=== PATIENT | female | born 1975 | race African-American/Black ===

== ENCOUNTER 2018-03-17 06:59 | Emergency (ER) | payer OTHER ==
--- OUTSIDE RECORDS SUMMARY | 2018-03-17 07:01 | XMS REPORT | Clinical Summary ---
:1975 Author Organization [facility] Address [address] [place] [address] Care Team Providers Name Role Phone Asked, No Pcp Primary Care Provider Unavailable Allergies Active Allergy Reactions Severity Noted Date Comments Aspirin Hives 05/01/2017 Liraglutide 05/03/2017 Pancreatitis Current Medications Prescription Sig. Disp. Refills Start Date End Date Status insulin asp Inject 22 Active prt-insulin ASPART Units under (NovoLOG 70/30) 100 the skin 2 unit/mL (70-30) (two) times a injection day before meals. esomeprazole Take 20 mg by Active (NexIUM) 20 MG mouth daily capsule before breakfast. lisinopril-hydrochl Take 1 tablet Active orothiazide by mouth (MARY PEGUEROTI daily. C) 10-12.5 mg per tablet liraglutide Inject 1.2 mg 05/03/2017 Discontinued (VICTOZA) 0.6 under the skin mg/0.1 mL (18 mg/3 daily. mL) pen injector HYDROcodone-acetami Take 1 tablet 05/03/2017 Discontinued nophen (NORCO) by mouth every 7.5-325 mg per 6 (six) hours tablet as needed for mild pain or moderate pain. HYDROcodone-acetami Take 1 tablet 20 tablet 0 05/03/2017 05/08/2017 nophen (NORCO) by mouth every 5-325 mg per tablet 6 (six) hours as needed for moderate pain for up to 5 days. Max Daily Amount: 4 tablets ondansetron Take 1 tablet 15 tablet 0 05/03/2017 06/02/2017 (ZOFRAN, (8 mg total) HYDROCHLORIDE,) 8 by mouth every MG tablet 8 (eight) hours as needed for nausea or vomiting for up to 30 days. Active Problems Problem Noted Date Abdominal pain 05/02/2017 Pancreatitis 05/02/2017 Type 2 diabetes mellitus with complication 05/02/2017 Hepatitis 05/01/2017 Encounters Date Type Specialty Care Team Description 05/01/2017 - Emergency General Internal Tu, ShreyasJose Manuel Rogers, Hepatitis ( Primary Dx); 05/03/2017 Medicine Epigastric pain; Suman Andrews Drug-induced acute pancreatitis without infection or necrosis MD Amelie after 03/16/2017 Social History Tobacco Use Types Packs/Day Years Used Date Former Smoker Cigarettes 0.5 Tobacco Cessation: Counseling Given: No Alcohol Use Drinks/Week oz/Week Comments Yes social Sex Assigned at Date Recorded Not on file Last Filed Vital Signs Vital Sign Reading Time Taken Blood Pressure 120/72 05/03/2017 7:37 AM CDT Pulse 64 05/03/2017 7:37 AM CDT Temperature 36.2 C (97.2 F) 05/03/2017 7:37 AM CDT Respiratory Rate 18 05/03/2017 7:37 AM CDT Oxygen Saturation 98% 05/03/2017 7:37 AM CDT Inhaled Oxygen Concentration - - Weight - - Height 172.7 cm (5' 8") 05/01/2017 12:57 PM CDT Body Mass Index - - Plan of Treatment Health Maintenance Due Date Last Done Comments DIABETIC FOOT EXAM 1984 DIABETIC RETINAL EYE EXAM 1984 URINE MICROALBUMIN 1984 CERVICAL CANCER SCREENING 1995 INFLUENZA VACCINE 05/28/2018 Results POC glucose (05/03/2017 7:36 AM)Only the most recent of10 resultswithin the time period is included. Component Value Ref Range POC glucose 178 (H) 65 - 99 mg/dL Comment: [facility] Notified RN Meter ID: [id number] Chili Pepper Grinder: Maria Fernanda Santiago Specimen Performing Laboratory [facility] DEPARTMENT OF PATHOLOGY AND GENOMIC MEDICINE [address] [place] [address] CBC with platelet and differential (05/03/2017 6:00 AM)Only the most recent of4 resultswithin the time period is included. Component Value Ref Range WBC 8.22 4.50 - 11.00 k/uL RBC 4.05 (L) 4.20 - 5.50 m/uL HGB 11.1 (L) 12.0 - 16.0 g/dL HCT 35.1 (L) 37.0 - 47.0 % MCV 86.7 82.0 - 100.0 fL MCH 27.4 27.0 - 34.0 pg MCHC 31.6 31.0 - 37.0 g/dL RDW - SD 48.0 37.0 - 55.0 fL MPV 9.2 8.8 - 13.2 fL Platelet count 347 150 - 400 k/uL Nucleated RBC 0.00 /100 WBC Neutrophils 47.9 39.0 - 69.0 % Lymphocytes 38.2 25.0 - 45.0 % Monocytes 8.5 0.0 - 10.0 % Eosinophils 4.5 0.0 - 5.0 % Basophils 0.5 0.0 - 1.0 % Immature granulocytes 0.4Comment: "Immature granulocytes" 0.0 - 1.0 % (promyelocytes, myelocytes, metamyelocytes) Specimen Performing Laboratory Blood [facility] DEPARTMENT OF PATHOLOGY AND [facility] [address] [address] Estimated GFR (05/03/2017 4:00 AM)Only the most recent of4 resultswithin the time period is included. Component Value Ref Range GFR Non Af Amer 54 (A) mL/min/1.73 m2 GFR Af Amer 66 mL/min/1.73 m2 Comment: Chronic kidney disease: <60 mL/min/1.73m2 Kidney failure: <15 mL/min/1.73m2 The estimated GFR is calculated from the IDMS-traceable Modification of Diet in Renal Disease Equation. The accuracy of the calculation is poor when the creatinine is normal. Calculated values >90 mL/min/1.73m2 are not reported. This equation has not been validated in children (<18 years), women, the elderly (>70 years), or ethnic groups other than Caucasians and Americans. Specimen Performing Laboratory Plasma specimen [facility] DEPARTMENT OF PATHOLOGY AND [facility] MEDICINE [address] [place] [address] Comprehensive metabolic panel (05/03/2017 4:00 AM)Only the most recent of4 resultswithin the time period is included. Component Value Ref Range Sodium 141 135 - 148 mEq/L Potassium 3.3 (L) 3.5 - 5.0 mEq/L Chloride 101 98 - 112 mEq/L CO2 27 24 - 31 mEq/L Anion gap 13 7 - 15 mEq/L Comment: Starting from January , anion gap calculation no longer incorporates potassium. Please note the change. BUN 5 (L) 6 - 20 mg/dL Creatinine 1.1 (H) 0.5 - 0.9 mg/dL Glucose 150 (H) 65 - 99 mg/dL Calcium 8.9 8.3 - 10.2 mg/dL Protein 7.1 6.3 - 8.3 g/dL Comment: [place] 4.6-7.0 g/dL 1 week 4.4-7.6 g/dL 7 months-1year5.1-7.3 g/dL 1-2 years5.6-7.5 g/dL >3 years6.0-8.0 g/dL 18-150 6.3-8.3 g/dL Albumin 2.7 (L) 3.5 - 5.0 g/dL A/G ratio 0.6 (L) 0.7 - 3.8 Alkaline phosphatase 187 (H) 35 - 104 U/L AST 121 (H) 10 - 35 U/L ALT 192 (H) 5 - 50 U/L Total bilirubin 0.4 0.0 - 1.2 mg/dL Specimen Performing Laboratory Plasma specimen [facility] DEPARTMENT OF PATHOLOGY AND GENOMIC MEDICINE [address] [place] [address] Troponin (05/02/2017 11:08 AM)Only the most recent of2 resultswithin the time period is included. Component Value Ref Range Troponin <0.30 0.00 - 0.30 ng/mL Comment: 0.30 - 1.49 ng/mlMay indicate increased risk of acute coronary syndrome. >=1.5 ng/mlConsistent with acute myocardial infarction. The diagnostic value of a single normal or non-diagnostic result is questionable.Serial samples at 2-6 hour intervals are required to rule out acute myocardial injury. Specimen Performing Laboratory Plasma specimen [facility] DEPARTMENT OF PATHOLOGY AND GENOMIC MEDICINE [address] [place] [id number] Urinalysis screen and microscopy, with reflex to culture (05/02/2017 5:26 AM) Component Value Ref Range Specimen site Clean catch Color, UA Straw Appearance, UA Clear Specific gravity, UA 1.020 1.001 - 1.035 pH, UA 5.0 5.0 - 8.5 Protein, UA Negative Negative Glucose, UA 3+ (A) Negative Ketones, UA Negative Negative Bilirubin, UA Negative Negative Blood, UA Negative Negative Nitrite, UA Negative Negative Urobilinogen, UA <2.0 <2.0 Leukocyte esterase, UA Negative Negative Epithelial cells, UA 3 /HPF WBC, UA 1 0 - 4 /HPF RBC, UA 1 0 - 2 /HPF Bacteria, UA Few None seen Yeast, UA None seen Yeast with pseudohyphae, UA None seen Hyaline casts, UA 8 /LPF Specimen Performing Laboratory Urine [facility] DEPARTMENT OF PATHOLOGY AND GENOMIC MEDICINE [address] [place] [address] Urine culture (05/02/2017 5:26 AM) Component Value Ref Range Urine culture SEE COMMENTComment: Bacteriuria screen negative. Specimen Performing Laboratory [facility] OF PATHOLOGY AND GENOMIC MEDICINE [address] [place] [address] ECG 12 lead (05/02/2017 4:29 AM) Component Value Ref Range Ventricular rate 78 Atrial rate 78 RI interval 160 QRSD interval 84 QT interval 412 QTC interval 469 P axis 1 56 QRS axis 1 3 T wave axis 2 EKG impression Normal sinus rhythm-Normal ECG-No previous ECGs available- Specimen Performing Laboratory [facility] MUSE [address] [place] [address] Hepatitis acute panel (05/02/2017 3:56 AM) Component Value Ref Range Hepatitis A IgM Non-reactive Non-reactive Hepatitis B core IgM Non-reactive Non-reactive Hepatitis B surface Ag Non-reactive Non-reactive Hepatitis C Ab Non-reactive Non-reactive Specimen Performing Laboratory Serum [facility] OF PATHOLOGY AND [facility] MEDICINE [address] [place] [address] Hemoglobin A1c (05/02/2017 3:56 AM) Component Value Ref Range Hemoglobin A1C 9.4 (H) 4.0 - 5.6 % Comment: HbA1c cutoffs for diagnosing diabetes: 4.0% - 5.6%=normal 5.7% - 6.4%=increased risk for diabetes (prediabetes) >=6.5%=diabetes Goals for glycemic control (ADA 2016) < 7.0%Target for non adults with diabetes. More or less stringent targets may be appropriate for individual patients. <7.5% Target for Children and adolescents with type 1 diabetes. Specimen Performing Laboratory Blood [facility] DEPARTMENT OF PATHOLOGY AND GENOMIC MEDICINE [address] [place] [address] Lipid panel (05/02/2017 3:56 AM) Component Value Ref Range Cholesterol 188 <200 mg/dL Triglycerides 217 (H) <150 mg/dL HDL cholesterol 27 (L) >40 mg/dL LDL cholesterol 137 (H)Comment: Result obtained by direct LDL <100 mg/dL measurement Lipid panel interpretation SeeBelow Comment: Total Cholesterol (mg/dL) <200 Desirable [phone]-fwne >=240High Triglycerides (mg/dL) <150 Normal [id number]-dpmm 200-499High >=500Very high HDL Cholesterol (mg/dL) <40Low (male) <40Low (female) LDL Cholesterol (mg/dL) <100 Optimal 100-129Near or above optimal [phone]-doru 160-189High >=190Very high Risk Catergories that modify LDL goals. Risk CatergoriesLDL goal (mg/dL) CHD and CHD risk equivalent<100 (10-year risk >20%) Multiple (2+) risk factors <130 (10-year risk=<20%) 0-1 risk factors <160 (<10-year risk) Defining levels of lipids in metabolic syndrome Triglycerides>=150 mg/dL HDL Cholesterol Men<40 mg/dL Women<40 mg/dL Non-HDL cholesterol is a second target for therapy in persons with high triglycerides (>=200 mg/dL) Specimen Performing Laboratory Plasma specimen [facility] DEPARTMENT OF PATHOLOGY AND GENOMIC MEDICINE [address] [place] [address] Abdomen Pelvis W Contrast (05/01/2017 3:00 PM) Specimen Performing Laboratory [address] [address] Narrative EXAMINATION:CT ABDOMEN PELVIS W CONTRAST CLINICAL HISTORY:epigastric pain probable pancreatitis TECHNIQUE: Multiple axial images of the abdomen and pelvis were obtained following intravenous administration of iodinated contrast. Sagittal and coronal computerized reformatted images were also obtained. Radiation dose reduction technique was utilized. COMPARISON:None. FINDINGS: Abdomen: 1. There is diffuse fatty infiltration of the liver. No focal lesions are seen. 2.No calcified gallstones noted. The biliary system is not dilated. 3.No peripancreatic edema or fluid collection is noted. The pancreatic duct is not dilated. 4.The spleen, adrenal glands, kidneys are within normal limits. 5.The abdominal aorta is of normal caliber. 6.The appendix has normal appearance. Pelvis: 1. There are no CT findings of acute diverticulitis. No pelvic sidewall mass or fluid collection is seen. IMPRESSION: No acute abnormality. [id number] Procedure Note Interface, Radiology Results Incoming - 05/01/2017 3:07 PM CDT EXAMINATION: CT ABDOMEN PELVIS W CONTRAST CLINICAL HISTORY: epigastric pain probable pancreatitis TECHNIQUE: Multiple axial images of the abdomen and pelvis were obtained following intravenous administration of iodinated contrast. Sagittal and coronal computerized reformatted images were also obtained. Radiation dose reduction technique was utilized. COMPARISON: None. FINDINGS: Abdomen: 1. There is diffuse fatty infiltration of the liver. No focal lesions are seen. 2. No calcified gallstones noted. The biliary system is not dilated. 3. No peripancreatic edema or fluid collection is noted. The pancreatic duct is not dilated. 4. The spleen, adrenal glands, kidneys are within normal limits. 5. The abdominal aorta is of normal caliber. 6. The appendix has normal appearance. Pelvis: 1. There are no CT findings of acute diverticulitis. No pelvic sidewall mass or fluid collection is seen. IMPRESSION: No acute abnormality. [id number] Urinalysis (05/01/2017 3:00 PM) Component Value Ref Range Glucose, UA Trace (A) Negative Bilirubin, UA Positive@UBIL (A) Negative Ketones, UA 2+ (A) Negative Specific gravity, UA 1.025 1.001 - 1.035 Blood, UA Negative Negative pH, UA 5.0 5.0 - 8.5 Protein, UA 1+ (A) Negative Urobilinogen, UA <2.0 <2.0 Nitrite, UA Negative Negative Leukocyte esterase, UA Negative Negative Color, UA Lyubov Appearance, UA Sl Cloudy Specimen Performing Laboratory Urine DEPARTMENT OF PATHOLOGY AND GENOMIC MEDICINE, [facility] [id number] [place] [address] [place] Gallbladder (05/01/2017 2:46 PM) Specimen Performing Laboratory [facility] [address] [place] [address] Narrative EXAMINATION:US GALLBLADDER CLINICAL HISTORY:Cholecystitis COMPARISON:None. FINDINGS: Gallbladder: The gallbladder is without evidence of calculi. The gallbladder wall is not thickened and there is no pericholecystic fluid. CBD:4.3 mm in diameter , within normal limits. Portal vein: The portal vein demonstrates normal hepatopedal flow. The portal vein measures 1.2 cm.. The visualized liver is echogenic from steatosis. IMPRESSION: Normal gallbladder ultrasound examination. [facility]-[id number] Procedure Note Interface, Radiology Results Incoming - 05/01/2017 2:57 PM CDT EXAMINATION: US GALLBLADDER CLINICAL HISTORY: Cholecystitis COMPARISON: None. FINDINGS: Gallbladder: The gallbladder is without evidence of calculi. The gallbladder wall is not thickened and there is no pericholecystic fluid. CBD: 4.3 mm in diameter , within normal limits. Portal vein: The portal vein demonstrates normal hepatopedal flow. The portal vein measures 1.2 cm.. The visualized liver is echogenic from steatosis. IMPRESSION: Normal gallbladder ultrasound examination. [facility]-[id number] Lipase level (05/01/2017 1:25 PM) Component Value Ref Range Lipase 100 (H) 13 - 60 U/L Specimen Performing Laboratory Plasma specimen [facility] DEPARTMENT OF PATHOLOGY AND GENOMIC MEDICINE [address] [place] [address] Amylase level (05/01/2017 1:25 PM) Component Value Ref Range Amylase 63 14 - 97 U/L Specimen Performing Laboratory Plasma specimen DEPARTMENT OF PATHOLOGY AND GENOMIC MEDICINE, [address] [address] after 03/16/2017 Insurance Payer Benefit Plan / Group Subscriber ID Type Phone Address [employer] MED[employer] [place] [employer] xxxxxxxxx O [phone] [id number]
[2018-03-17] MEDS ORDERED: NA CHLORIDE 0.9% 1,000 ML ONE (07:23)
[2018-03-17] MEDS ORDERED: MEPERIDINE HCL 25 MG/0.5 ML ONE ×2 (07:23→08:08)
[2018-03-17] MEDS ORDERED: ONDANSETRON 4 MG/2 ML VIAL ONE (07:39)
[2018-03-17 07:58] LABS: Absolute Lymphocytes (CBC) 3.6 K/uL (0.7-4.9); Absolute Monocytes 0.8 K/uL (0.1-1.3); Basophils % 1.1 % (0-1.3); Eosinophils % 4.3 % (0-4.4); Hematocrit 35.1 % (36.0-45.0); Lymphocytes % 29.8 % (15.3-44.8); MCH 25.4 pg (27.0-35.0); MCV 79.4 fL (80-100); MPV 7.4 fL (7.6-11.3); Monocytes % 6.7 % (3.3-12.3); RBC Red Blood Cell Count 4.43 M/uL (3.86-4.86)
[2018-03-17 07:59] LABS: Bicarbonate 24 mEq/L (21-31); Glucose Level 306 mg/dL (65-120); Lipase 26 U/L (22-51); Potassium 4.1 mEq/L (3.6-5.0); Sodium Level 132 mEq/L (135-145)
[2018-03-17 08:06] LABS: ALT/SGPT 30 IU/L (10-60); AST/SGOT 27 IU/L (10-42); Albumin 3.7 g/dL (3.2-5.5); Alkaline Phosphatase 127 IU/L (42-121); BUN Blood Urea Nitrogen 15 mg/dL (6-20); Bilirubin Direct < 0.1 mg/dL (0-0.2); Bilirubin Total 0.2 mg/dL (0.3-1.2); Protein, Total 8.6 g/dL (6.0-8.3)
[2018-03-17] MEDS ORDERED: MORPHINE 4 MG/ML SYR ONE (09:00)
[2018-03-17 10:28] LABS: Urine Bacteria 20-50 /HPF (<20)
[2018-03-17 10:29] LABS: Urine Culture Reflex Order NOT NEEDED
--- NOTE | 2018-03-17 10:32 | RAD REPORT ---
EXAM DESCRIPTION: CT - Abdomen Pelvis W Contrast - 03/17/2018 9:54 am CLINICAL HISTORY: Abdominal pain. Right flank pain COMPARISON: None. TECHNIQUE: Computed axial tomography of the abdomen and pelvis was obtained. 100 cc Isovue-300 is ad ministered intravenously. Oral contrast was given. All CT scans are performed using dose optimization technique as appropriate and may include automated exposure control or mA/KV adjustment according to patient size. FINDINGS: The liver is mildly enlarged. Fatty infiltration is seen. Spleen, pancreas, adrenals and kidneys appear unremarkable. The appendix is normal caliber. There is no evidence of diverticulitis A small umbilical hernia is present IMPRESSION: Mild hepatomegaly with fatty infiltration A small umbilical hernia
--- NOTE | 2018-03-17 10:42 | ER ---
Nurse's Notes [facility] Name: Fernanda Chong Age: 42 yrs Sex: Female : 1975 Arrival Date: 03/17/2018 Time: 07:02 Bed 18 Private MD: Diagnosis: Muscle spasm of back;Radiculopathy, lumbosacral region Presentation: 03/17 07:19 Presenting complaint: Patient states: left sided abd pain that started 03-10-18, pain iw moved to right flank on Saturday, went to clinic on and was told she had kidney infection, was started on Bactrim and Tamsulosin, pain has been constant, denies urinary symptoms, vomited X 1 today. Transition of care: patient was not received from another setting of care. Onset of symptoms was March 10, 2018. Initial Sepsis Screen: Does the patient meet any 2 criteria? HR > 90 bpm. Does the patient have a suspected source of infection?. Care prior to arrival: None. 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 - Family history:: not pertinent. - Social history:: Smoking status: Patient uses tobacco products, denies chronic smoking, but will smoke occasionally. - Hospitalizations: : No recent hospitalization is reported. Screenin:54 Abuse screen: Denies threats or abuse. Nutritional screening: No deficits noted. em Tuberculosis screening: No symptoms or risk factors identified. Fall Risk None identified. Assessment: 07:25 General: Appears uncomfortable, Behavior is cooperative, crying. Pain: Complains of em pain in right lower back. Neuro: Level of Consciousness is awake, alert, obeys commands, Oriented to person, place, time, situation. Cardiovascular: Capillary refill < 3 seconds Patient's skin is warm and dry. Respiratory: Airway is patent Respiratory effort is even, unlabored, Respiratory pattern is regular, symmetrical. GI: Abdomen is round non-distended, Reports nausea, vomiting. : No signs and/or symptoms were reported regarding the genitourinary system. EENT: No signs and/or symptoms were reported regarding the EENT system. Derm: Skin is intact, Skin is pink, warm \T\ dry. Musculoskeletal: Range of motion: intact in all extremities. 07:35 Reassessment: Patient appears in no apparent distress at this time. I agree with above iw assessment by Pelon Glaser LVN. 07:57 Reassessment: Patient appears in no apparent distress at this time. Patient and/or em family updated on plan of care and expected duration. Pain level reassessed. Patient is alert, oriented x 3, equal unlabored respirations, skin warm/dry/pink. Patient states feeling better. 08:10 Reassessment: Patient appears in no apparent distress at this time. pt crying c/o pain, em Dr. Walker notified, new orders received, finished drinking PO contrast, CT notified. 08:42 Reassessment: Patient appears in no apparent distress at this time. Patient and/or em family updated on plan of care and expected duration. Pain level reassessed. Patient is alert, oriented x 3, equal unlabored respirations, skin warm/dry/pink. 09:37 Reassessment: Patient appears in no apparent distress at this time. Patient and/or em family updated on plan of care and expected duration. Pain level reassessed. Patient is alert, oriented x 3, equal unlabored respirations, skin warm/dry/pink. 10:05 Reassessment: Patient appears in no apparent distress at this time. returned from CT. em 11:05 Reassessment: Patient appears in no apparent distress at this time. Patient and/or em family updated on plan of care and expected duration. Pain level reassessed. Patient is alert, oriented x 3, equal unlabored respirations, skin warm/dry/pink. Patient states feeling better. Vital Signs: 07:22 BP 165 / 116; Pulse 115; Resp 18 S; Temp 98.3(O); Pulse Ox 95% on R/A; Weight 109.32 iw kg; Height 5 ft. 10 in. (177.80 cm); Pain 10/10; 07:44 BP 170 / 90; Pulse 111; Resp 20; Pulse Ox 97% on R/A; em 08:42 BP 114 / 75; Pulse 98; Resp 18; Pulse Ox 99% on R/A; em 09:38 BP 118 / 80; Pulse 106; Resp 18; Pulse Ox 100% on R/A; em 10:13 BP 112 / 78; Pulse 95; Resp 16; Pulse Ox 96% on R/A; em 11:05 BP 127 / 88; Pulse 88; Resp 18; Pulse Ox 96% on R/A; Pain 5/10; em 07:22 Body Mass Index 34.58 (109.32 kg, 177.80 cm) ED Course: 07:02 Patient arrived in ED. al2 07:12 Howard Walker MD is Attending Physician. rn 07:20 Pelon Glaser LVN is Primary Nurse. em 07:22 Triage completed. iw 07:22 Arm band placed on. iw 07:30 Patient has correct armband on for positive identification. Bed in low position. Call em light in reach. Side rails up X 1. 07:30 No provider procedures requiring assistance completed. Inserted saline lock: 22 gauge em in left antecubital area, using aseptic technique. Blood collected. 07:30 Initial lab(s) drawn, by me, sent to lab. em 09:51 CT completed. Patient tolerated procedure well. Patient moved to CT via wheelchair. Patient moved back from CT. 09:54 CT Abd/Pelvis - W/Contrast In Process Unspecified. EDMS 11:25 IV discontinued, intact, bleeding controlled, No redness/swelling at site. Pressure em dressing applied. Administered Medications: 07:30 Drug: NS 0.9% 1000 ml Route: IV; Rate: 1000 ml; Site: left antecubital; em 09:30 Follow up: IV Status: Completed infusion; IV Intake: 1000ml em 07:38 Drug: Demerol 25 mg Route: IVP; Site: left antecubital; iw 08:15 Follow up: Response: No adverse reaction; Pain is unchanged, physician notified em 07:44 Drug: Zofran 4 mg Route: IVP; Site: left antecubital; iw 08:14 Follow up: Response: No adverse reaction; Nausea is decreased em 08:10 Drug: Demerol 25 mg Route: IVP; Site: left antecubital; em 08:56 Follow up: Response: No adverse reaction em 09:07 Drug: morphine 4 mg Route: IVP; Site: left antecubital; iw 09:30 Follow up: Response: No adverse reaction; Pain is decreased em 11:02 Drug: Decadron - Dexamethasone 10 mg Route: IVP; Site: left antecubital; iw 11:22 Follow up: Response: No adverse reaction em 11:05 Drug: Flexeril 10 mg Route: PO; em 11:23 Follow up: Response: No adverse reaction em 11:05 Drug: [place] 10 mg-325 mg 1 tabs Route: PO; em 11:23 Follow up: Response: No adverse reaction em Intake: 09:30 IV: 1000ml; Total: 1000ml. em Outcome: 10:42 Discharge ordered by . rn 11:25 Discharged to home ambulatory. em 11:25 Condition: good 11:25 Discharge instructions given to patient, Instructed on discharge instructions, follow up and referral plans. medication usage, Demonstrated understanding of instructions, follow-up care, medications, Prescriptions given X 3. 11:26 Patient left the ED. em Signatures: Dispatcher [employer] Janelle Nelson Edgar, ORGANIC CHEMISTRY TEACHER ORGANIC CHEMISTRY TEACHER em Claudia Chong, Howard Lehman RN, MD MD rn Love, Angelica al2
--- NOTE | 2018-03-17 10:42 | EDPHYS ---
Physician Documentation [facility] Name: Fernanda Chong Age: 42 yrs Sex: Female : 1975 Arrival Date: 03/17/2018 Time: 07:02 Bed 18 Private MD: ED Physician Howard Walker HPI: 03/17 07:23 This 42 yrs old Black Female presents to ER via Ambulatory with complaints of Back Pain.rn 07:23 The patient presents with pain that is acute, with no known mechanism of injury. The rn symptoms are located in the low back. Onset: The symptoms/episode began/occurred 1 week(s) ago. The pain radiates to the abdomen. Associated signs and symptoms: Pertinent positives: abdominal pain, nausea, Pertinent negatives: constipation, dysuria, fever, urinary retention, vomiting, weakness. Modifying factors: The patient symptoms are alleviated by nothing. Severity of symptoms: At their worst the symptoms were mild, in the emergency department the symptoms are unchanged. The patient has experienced a previous episode. Reports right flank and right abd pain for 1 week, intermittent, then became constant for last 4 days, assoc with nausea, no fever, diagnosed with UTI vs kidney stone, finishing abx. . 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 - Family history:: not pertinent. - Social history:: Smoking status: Patient uses tobacco products, denies chronic smoking, but will smoke occasionally. - Hospitalizations: : No recent hospitalization is reported. ROS: 07:23 Constitutional: Negative for fever, chills, and weight loss, Eyes: Negative for injury, rn pain, redness, and discharge, Neck: Negative for injury, pain, and swelling, Cardiovascular: Negative for chest pain, palpitations, and edema, Respiratory: Negative for shortness of breath, cough, wheezing, and pleuritic chest pain, Abdomen/GI: + abd pain, + nausea, neg for vomiting/diarrhea Back: + right flank pain MS/Extremity: Negative for injury and deformity, Skin: Negative for injury, rash, and discoloration, Neuro: Negative for headache, weakness, numbness, tingling, and seizure. Exam: 07:23 Constitutional: This is a well developed, well nourished patient who is awake, alert, rn appears uncomfortable Head/Face: Normocephalic, atraumatic. Cardiovascular: tachycardic, regular, no murmur Respiratory: Lungs have equal breath sounds bilaterally, clear to auscultation and percussion. No rales, rhonchi or wheezes noted. No increased work of breathing, no retractions or nasal flaring. Abdomen/GI: soft, + tender RLQ and suprapubic Back: No spinal tenderness. + right CVAT MS/ Extremity: Pulses equal, no cyanosis. Neurovascular intact. Full, normal range of motion. Equal circumference. Neuro: Awake and alert, GCS 15, oriented to person, place, time, and situation. Cranial nerves II-XII grossly intact. Motor strength 5/5 in all extremities. Sensory grossly intact. Vital Signs: 07:22 BP 165 / 116; Pulse 115; Resp 18 S; Temp 98.3(O); Pulse Ox 95% on R/A; Weight 109.32 iw kg; Height 5 ft. 10 in. (177.80 cm); Pain 10/10; 07:44 BP 170 / 90; Pulse 111; Resp 20; Pulse Ox 97% on R/A; em 08:42 BP 114 / 75; Pulse 98; Resp 18; Pulse Ox 99% on R/A; em 09:38 BP 118 / 80; Pulse 106; Resp 18; Pulse Ox 100% on R/A; em 10:13 BP 112 / 78; Pulse 95; Resp 16; Pulse Ox 96% on R/A; em 11:05 BP 127 / 88; Pulse 88; Resp 18; Pulse Ox 96% on R/A; Pain 5/10; em 07:22 Body Mass Index 34.58 (109.32 kg, 177.80 cm) iw MDM: 07:12 Patient medically screened. rn 10:40 Differential diagnosis: arthritis. rn 10:40 ED course: Pt now reports majority of pain in lower back, causes burning pain down rn right leg, sounds more like muscle spasm and possible radiculopathy, especially given CT abdomen normal. . 03/17 07:20 Order name: Basic Metabolic Panel; Complete Time: 08:28 rn 03/17 07:20 Order name: CBC with Diff; Complete Time: 08:28 rn 03/17 07:20 Order name: Creatinine for Radiology; Complete Time: 08:28 rn 03/17 07:20 Order name: Hepatic Function; Complete Time: 08:28 rn 03/17 07:20 Order name: Lipase; Complete Time: 08:28 rn 03/17 07:20 Order name: Urine Microscopic Only; Complete Time: 10:34 rn 03/17 07:20 Order name: CT Abd/Pelvis - W/Contrast; Complete Time: 10:34 rn 03/17 07:20 Order name: Urine Culture rn 03/17 08:52 Order name: Urine Dipstick--Ancillary (enter results) bd 03/17 08:52 Order name: Urine --Ancillary (enter results) bd 03/17 07:20 Order name: Urine Test (obtain specimen); Complete Time: 08:43 rn 03/17 07:20 Order name: IV Saline Lock; Complete Time: 07:49 rn 03/17 07:20 Order name: Labs collected and sent; Complete Time: 07:49 rn 03/17 07:20 Order name: Urine Dipstick-Ancillary (obtain specimen); Complete Time: 08:43 rn Administered Medications: 07:30 Drug: NS 0.9% 1000 ml Route: IV; Rate: 1000 ml; Site: left antecubital; em 09:30 Follow up: IV Status: Completed infusion; IV Intake: 1000ml em 07:38 Drug: Demerol 25 mg Route: IVP; Site: left antecubital; iw 08:15 Follow up: Response: No adverse reaction; Pain is unchanged, physician notified em 07:44 Drug: Zofran 4 mg Route: IVP; Site: left antecubital; iw 08:14 Follow up: Response: No adverse reaction; Nausea is decreased em 08:10 Drug: Demerol 25 mg Route: IVP; Site: left antecubital; em 08:56 Follow up: Response: No adverse reaction em 09:07 Drug: morphine 4 mg Route: IVP; Site: left antecubital; iw 09:30 Follow up: Response: No adverse reaction; Pain is decreased em 11:02 Drug: Decadron - Dexamethasone 10 mg Route: IVP; Site: left antecubital; iw 11:22 Follow up: Response: No adverse reaction em 11:05 Drug: Flexeril 10 mg Route: PO; em 11:23 Follow up: Response: No adverse reaction em 11:05 Drug: Scipio 10 mg-325 mg 1 tabs Route: PO; em 11:23 Follow up: Response: No adverse reaction em Disposition: 03/17/18 10:42 Discharged to Home. Impression: Muscle spasm of back, Radiculopathy, lumbosacral region. - Condition is Stable. - Discharge Instructions: Lumbosacral Radiculopathy, Muscle Cramps and Spasms. - Prescriptions for Tylenol- Codeine #3 300-30 mg Oral Tablet - take 1 tablet by ORAL route every 6 hours As needed; 20 tablet. Cyclobenzaprine 10 mg Oral Tablet - take 1 tablet by ORAL route every 8 hours As needed; 15 tablet. Medrol (Drew) 4 mg Oral Tablets, Dose Pack - take 1 tablet by ORAL route as directed - follow package instructions; 1 packet. - Medication Reconciliation Form, Thank You Letter, Antibiotic Education, Prescription Opioid Use form. - Follow up: Private Physician; When: As needed; Reason: Recheck today's complaints, Re-evaluation by your physician. - Problem is new. - Symptoms have improved. Signatures: Dispatcher [employer] EDPelon Howell, MOTOR AND GENERATOR ASSEMBLER MOTOR AND GENERATOR ASSEMBLER em Claudia Chong RN RN iw Nieto, Roman, MD MD internal controls analyst: (The following items were deleted from the chart) 11:26 10:42 03/17/2018 10:42 Discharged to Home. Impression: Muscle spasm of back; em Radiculopathy, lumbosacral region. Condition is Stable. Forms are Medication Reconciliation Form, Thank You Letter, Antibiotic Education, Prescription Opioid Use. Follow up: Private Physician; When: As needed; Reason: Recheck today's complaints, Re-evaluation by your physician. Problem is new. Symptoms have improved. rn
[2018-03-17] MEDS ORDERED: CYCLOBENZAPRINE 10 MG TAB ONE (10:59)
[2018-03-17] MEDS ORDERED: DEXAMETHASONE 10 MG/ML VIAL ONE (11:00)
[2018-03-17] MEDS ORDERED: HYDROCODONE/APAP 10/325 TAB ONE (11:00)
[2018-03-17 13:16] LABS: Urine Blood TRACE (NEG); Urine Glucose 2+ (NEG); Urine Protein NEGATIVE (NEG); Urine pH 5.5 (5.0-7.0)
== END 2018-03-17 11:26 | disposition home or self-care (01) ==
LOC: ER 06:59
DX: M54.17 Radiculopathy, lumbosacral region (principal); Z72.0 Tobacco use; Z88.0 Allergy status to penicillin; Z88.6 Allergy status to analgesic agent
CPT/HCPCS: 36415; 74177; 80048; 80076; 81003; 81015; 81025; 83690; 85025; 87086; 87088; 96361; 96374; 96375; 99284; J1100; J2175; J2405; J7030; Q9967

== ENCOUNTER 2018-11-24 16:21 | Emergency (ER) | payer OTHER ==
--- OUTSIDE RECORDS SUMMARY | 2018-11-24 16:27 | XMS REPORT | Clinical Summary ---
:1975 Author Organization [facility] Address [address] [place] [address] Care Team Providers Name Role Phone Asked, No Pcp Primary Care Provider Unavailable Allergies Active Allergy Reactions Severity Noted Date Comments Aspirin Hives 05/01/2017 Liraglutide 05/03/2017 Pancreatitis Medications Medication Sig Dispensed Refills Start Date End Date Status insulin asp prt-insulin Inject 22 Units 0 Active ASPART (NovoLOG 70/30) under the skin 2 100 unit/mL (70-30) (two) times a day injection before meals. esomeprazole (NexIUM) Take 20 mg by 0 Active 20 MG capsule mouth daily before breakfast. lisinopril-hydrochlorot Take 1 tablet by 0 Active hiazide mouth daily. (PRINZIDE,ZESTORETIC) 10-12.5 mg per tablet Active Problems Problem Noted Date Abdominal pain 05/02/2017 Pancreatitis 05/02/2017 Type 2 diabetes mellitus with complication 05/02/2017 Hepatitis 05/01/2017 Social History Tobacco Use Types Packs/Day Years Used Date Former Smoker Cigarettes 0.5 Tobacco Cessation: Counseling Given: No Alcohol Use Drinks/Week oz/Week Comments Yes social Sex Assigned at Date Recorded Not on file Job Start Date Occupation Industry Not on file Not on file Not on file Travel History Travel Start Travel End No recent travel history available. Last Filed Vital Signs Not on file Plan of Treatment Health Maintenance Due Date Last Done Comments DIABETIC RETINAL EYE EXAM 1975 DIABETIC FOOT EXAM 1984 URINE MICROALBUMIN 1984 CERVICAL CANCER SCREENING 1995 INFLUENZA VACCINE 05/28/2018 Results Not on fileafter 11/23/2017 Insurance Payer Benefit Plan / Group Subscriber ID Type Phone Address UHC MEDICAID [employer] [place] [employer] xxxxxxxxx HMO Advance Directives Patient has advance care planning documents on file. For more information, please contact:Waylon Cole[address] [place] [address]
[2018-11-24] MEDS ORDERED: HYDROCODONE/APAP 10/325 TAB ONE (16:46)
[2018-11-24] MEDS ORDERED: KETOROLAC 30 MG/ML INJ ONE (16:46)
--- NOTE | 2018-11-24 17:34 | RAD REPORT ---
EXAM DESCRIPTION: CT - Spine Lumbar Wo Con - 11/24/2018 5:23 pm CLINICAL HISTORY: Radiculopathy. LOWER BACK PAIN COMPARISON: No comparisons TECHNIQUE: Axial noncontrast CT imaging of the lumbar spine was performed with coronal and sagittal re-formatted images. All CT scans are performed using dose optimization technique as appropriate and may include automated exposure control or mA/KV adjustment according to patient size. FINDINGS: No acute lumbar spine fracture seen. No aggressive marrow pattern or malalignment. Paraspinal tissues are normal in thickness. No paraspinal abscess or hematoma seen. There is evidence of a left paracentral disc extrusion at L5-S1 likely affecting the left-sided exiti ng L5 nerve. Assessment is limited on CT examination. Follow-up MR imaging of the lumbar spine would be recommended for better assessment. IMPRESSION: No acute fracture or subluxation of the lumbar spine identified. Evidence of a fairly large left paracentral disc extrusion at L5-S1 as detailed. MR imaging of the chuck mbar spine would be needed for better visualization/ assessment.
--- NOTE | 2018-11-24 17:39 | ER ---
Nurse's Notes [facility] Name: Fernanda Chong Age: 43 yrs Sex: Female : 1975 Arrival Date: 11/24/2018 Time: 16:29 Bed 19 Private MD: Diagnosis: Low back pain Presentation: 11/24 16:29 Presenting complaint: EMS states: patient slid down from her bed 2 days ago and mg2 complains of shooting pain in her left thigh radiating to her left knee and leg. she has history of degenerative spinal disease. Transition of care: patient was not received from another setting of care. Onset of symptoms was November 22, 2018. Risk Assessment: Do you want to hurt yourself or someone else? Patient reports no desire to harm self or others. Initial Sepsis Screen: Does the patient meet any 2 criteria? No. Patient's initial sepsis screen is negative. Does the patient have a suspected source of infection? No. Patient's initial sepsis screen is negative. 16:29 Method Of Arrival: EMS mg2 16:29 Acuity: YARON 3 mg2 17:37 Care prior to arrival: None. 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 - Social history:: Smoking status: Patient uses tobacco products, denies chronic smoking, but will smoke occasionally, cigars, Patient uses alcohol, occasionally. - Ebola Screening: : No symptoms or risks identified at this time. Screenin:44 Abuse screen: Denies threats or abuse. Denies injuries from another. Nutritional mg2 screening: No deficits noted. Tuberculosis screening: No symptoms or risk factors identified. Fall Risk Ambulatory Aid- None/Bed Rest/Nurse Assist (0 pts). Gait- Weak (10 pts.). Assessment: 16:42 General: Appears in no apparent distress. comfortable, Behavior is calm, cooperative. mg2 Pain: Complains of pain in left leg and lumbar spine and left low back and lumbar area Pain radiates to left leg Pain currently is 10 out of 10 on a pain scale. Quality of pain is described as aching, Pain began 2-3 days ago. Is intermittent, Alleviated by medications, rest. Neuro: Level of Consciousness is awake, alert, obeys commands, Oriented to person, place, time, situation. Cardiovascular: Capillary refill < 3 seconds Patient's skin is warm and dry. Respiratory: Airway is patent Respiratory effort is even, unlabored, Respiratory pattern is regular, symmetrical. GI: No signs and/or symptoms were reported involving the gastrointestinal system. : No signs and/or symptoms were reported regarding the genitourinary system. EENT: No signs and/or symptoms were reported regarding the EENT system. Derm: Skin is intact, is healthy with good turgor, Skin is pink, warm \T\ dry. normal. Musculoskeletal: Circulation, motion, and sensation intact. Capillary refill < 3 seconds, Reports pain in left low back since 2 days ago. Pain is 10 out of 10 on a pain scale. 17:52 Reassessment: patient is for discharge. just waiting for her to come and pick mg2 her up. Vital Signs: 16:32 BP 151 / 96; Pulse 116; Resp 18; Temp 98.7; Pulse Ox 100% on R/A; Weight 109.77 kg; mg2 Height 5 ft. 9 in. (175.26 cm); Pain 10/10; 17:36 BP 119 / 79; Pulse 104; Resp 18; Pulse Ox 100% on R/A; Pain 6/10; mg2 17:51 BP 123 / 84; Pulse 102; Resp 18; Pulse Ox 100% on R/A; Pain 2/10; mg2 16:32 Body Mass Index 35.74 (109.77 kg, 175.26 cm) mg2 ED Course: 16:29 Patient arrived in ED. mg2 16:29 Tahir Francisco NP is PHCP. pm1 16:29 Nicky Rob MD is Attending Physician. pm1 16:29 PHCP role handed off by Tahir Francisco NP kb 16:29 Keara Fong FNP-C is PHCP. kb 16:32 Triage completed. mg2 16:40 Russ Gilbert, SHELLY is Primary Nurse. mg2 16:45 No provider procedures requiring assistance completed. Patient did not have IV access mg2 during this emergency room visit. 16:45 Patient has correct armband on for positive identification. Door closed. Warm blanket mg2 given. 16:51 Radiology exam delayed due to test not completed at this time. nj 17:12 Radiology exam delayed due to test not completed at this time. jg6 17:13 Patient moved to [place]. jg6 17:25 CT Lumbar Spine Wo Con In Process Unspecified. EDMS 17:38 Arm band placed on. mg2 Administered Medications: 16:41 Drug: Mulberry 10 mg-325 mg 1 tabs Route: PO; mg2 17:51 Follow up: Response: No adverse reaction; Marked relief of symptoms mg2 16:41 Drug: TORadol 60 mg Route: IM; Site: left gluteus; mg2 17:50 Follow up: Response: No adverse reaction; Marked relief of symptoms mg2 17:46 Drug: Decadron 10 mg Route: IM; Site: left gluteus; mg2 17:51 Follow up: Response: No adverse reaction; Medication administered at discharge. mg2 Outcome: 17:38 Discharge ordered by . kb 17:51 Discharged to home via wheelchair. mg2 17:51 Condition: stable 17:51 Discharge instructions given to patient, Instructed on discharge instructions, follow up and referral plans. medication usage, Demonstrated understanding of instructions, follow-up care, medications, Prescriptions given X 2. 18:32 Patient left the ED. mg2 Signatures: Dispatcher [employer] EDMS Keara Fong, CRICKET-C ASSOCIATE PROFESSOR OF LIBRARY SCIENCE-CkTahir Zuniga NP MAT REPAIRER pm1 Kenny Pa Michele, RN RN mg2 Sarita Luna jg6
--- NOTE | 2018-11-24 17:39 | EDPHYS ---
Physician Documentation [facility] Name: Fernanda Chong Age: 43 yrs Sex: Female : 1975 Arrival Date: 11/24/2018 Time: 16:29 Bed 19 Private MD: ED Physician Nicky Rob HPI: 11/24 16:31 This 43 yrs old Black Female presents to ER via Unassigned with complaints of back pain.kb 16:31 The patient presents with pain that is acute, and an injury, and tenderness. The kb symptoms are located in the lumbar area and left low back. Onset: The symptoms/episode began/occurred 2 day(s) ago. The pain radiates to the left leg. The patient has not experienced similar symptoms in the past. The patient has not recently seen a physician. 16:32 Associated signs and symptoms: The patient has no apparent associated signs or kb symptoms. The problem was sustained during a fall. Modifying factors: The patient symptoms are alleviated by remaining still, the patient symptoms are aggravated by any movement. Severity of symptoms: At their worst the symptoms were moderate, in the emergency department the symptoms are unchanged. Pt reports she fell out of bed and landed on her buttocks 2 days ago. Has had lumbar pain and pain to left lower back since then. Pain now radiates down left leg. 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 - Social history:: Smoking status: Patient uses tobacco products, denies chronic smoking, but will smoke occasionally, cigars, Patient uses alcohol, occasionally. - Ebola Screening: : No symptoms or risks identified at this time. ROS: 16:30 Constitutional: Negative for fever, chills, and weight loss, Cardiovascular: Negative kb for chest pain, palpitations, and edema, Respiratory: Negative for shortness of breath, cough, wheezing, and pleuritic chest pain, Abdomen/GI: Negative for abdominal pain, nausea, vomiting, diarrhea, and constipation, : Negative for injury, bleeding, discharge, and swelling, MS/Extremity: Negative for injury and deformity, Skin: Negative for injury, rash, and discoloration, Neuro: Negative for headache, weakness, numbness, tingling, and seizure. 16:30 Back: Positive for pain at rest, pain with movement, radiated pain, of the lumbar area and left low back. Exam: 16:30 Constitutional: This is a well developed, well nourished patient who is awake, alert, kb and in no acute distress. Head/Face: Normocephalic, atraumatic. Neck: Trachea midline, no thyromegaly or masses palpated, and no cervical lymphadenopathy. Supple, full range of motion without nuchal rigidity, or vertebral point tenderness. No Meningismus. Chest/axilla: Normal chest wall appearance and motion. Nontender with no deformity. No lesions are appreciated. Cardiovascular: Regular rate and rhythm with a normal S1 and S2. No gallops, murmurs, or rubs. Normal PMI, no JVD. No pulse deficits. Respiratory: Lungs have equal breath sounds bilaterally, clear to auscultation and percussion. No rales, rhonchi or wheezes noted. No increased work of breathing, no retractions or nasal flaring. Abdomen/GI: Soft, non-tender, with normal bowel sounds. No distension or tympany. No guarding or rebound. No evidence of tenderness throughout. Skin: Warm, dry with normal turgor. Normal color with no rashes, no lesions, and no evidence of cellulitis. MS/ Extremity: Pulses equal, no cyanosis. Neurovascular intact. Full, normal range of motion. Neuro: Awake and alert, GCS 15, oriented to person, place, time, and situation. Cranial nerves II-XII grossly intact. Motor strength 5/5 in all extremities. Sensory grossly intact. Cerebellar exam normal. Normal gait. 16:30 Back: pain, that is moderate, of the lumbar area and left low back, ROM is painful, vertebral tenderness, is appreciated at lumbar spine. Vital Signs: 16:32 BP 151 / 96; Pulse 116; Resp 18; Temp 98.7; Pulse Ox 100% on R/A; Weight 109.77 kg; mg2 Height 5 ft. 9 in. (175.26 cm); Pain 10/10; 17:36 BP 119 / 79; Pulse 104; Resp 18; Pulse Ox 100% on R/A; Pain 6/10; mg2 17:51 BP 123 / 84; Pulse 102; Resp 18; Pulse Ox 100% on R/A; Pain 2/10; mg2 16:32 Body Mass Index 35.74 (109.77 kg, 175.26 cm) mg2 MDM: 16:29 Patient medically screened. kb 16:31 Data reviewed: vital signs, nurses notes. Data interpreted: Pulse oximetry: on room air kb is 100 %. Interpretation: normal. 17:37 Counseling: I had a detailed discussion with the patient and/or guardian regarding: the kb historical points, exam findings, and any diagnostic results supporting the discharge/admit diagnosis, radiology results, the need for outpatient follow up, a family practitioner, to return to the emergency department if symptoms worsen or persist or if there are any questions or concerns that arise at home. 11/24 17:25 Order name: Urine Dipstick--Ancillary (enter results) bd 11/24 17:25 Order name: Urine --Ancillary (enter results) bd 11/24 16:30 Order name: CT Lumbar Spine Wo Con; Complete Time: 17:35 kb Administered Medications: 16:41 Drug: [place] 10 mg-325 mg 1 tabs Route: PO; mg2 17:51 Follow up: Response: No adverse reaction; Marked relief of symptoms mg2 16:41 Drug: TORadol 60 mg Route: IM; Site: left gluteus; mg2 17:50 Follow up: Response: No adverse reaction; Marked relief of symptoms mg2 17:46 Drug: Decadron 10 mg Route: IM; Site: left gluteus; mg2 17:51 Follow up: Response: No adverse reaction; Medication administered at discharge. mg2 Disposition: 11/25 18:25 Co-signature as Attending Physician, Nicky Rob MD. ma2 Disposition: 11/24/18 17:38 Discharged to Home. Impression: Low back pain. - Condition is Stable. - Discharge Instructions: Back Pain, Adult, [id number], Back Exercises, [id number]. - Prescriptions for Diclofenac Sodium 75 mg Oral Tablet, Delayed Release (E.C.) - take 1 tablet by ORAL route 2 times per day As needed; 30 tablet. Robaxin 500 mg Oral Tablet - take 2 tablet by ORAL route every 6 hours As needed; 40 tablet. - Medication Reconciliation Form, Thank You Letter, Antibiotic Education, Prescription Opioid Use form. - Follow up: Emergency Department; When: As needed; Reason: Worsening of condition. Follow up: Private Physician; When: 2 - 3 days; Reason: Recheck today's complaints, Continuance of care, Re-evaluation by your physician. Signatures: Dispatcher [employer] EDMS Keara Fong FNP-C FNP-Nicky Tovar MD MD ma2 Russ Gilbert, RN RN mg2 Corrections: (The following items were deleted from the chart) 11/24 18:32 17:38 11/24/2018 17:38 Discharged to Home. Impression: Low back pain. Condition is mg2 Stable. Discharge Instructions: Back Pain, Adult, [id number], Back Exercises, [id number]. Prescriptions for Diclofenac Sodium 75 mg Oral Tablet, Delayed Release (E.C.) - take 1 tablet by ORAL route 2 times per day As needed; 30 tablet, Cyclobenzaprine 10 mg Oral Tablet - take 1 tablet by ORAL route every 8 hours As needed; 21 tablet. and Forms are Medication Reconciliation Form, Thank You Letter, Antibiotic Education, Prescription Opioid Use. Follow up: Emergency Department; When: As needed; Reason: Worsening of condition. Follow up: Private Physician; When: 2 - 3 days; Reason: Recheck today's complaints, Continuance of care, Re-evaluation by your physician. kb
[2018-11-24] MEDS ORDERED: DEXAMETHASONE 4 MG/ML VIAL ONE (17:52)
[2018-11-24 20:20] LABS: Urine Blood NEGATIVE (NEG); Urine Glucose NEGATIVE (NEG); Urine Protein NEGATIVE (NEG); Urine Specific Gravity 1.025 (1.005-1.030); Urine pH 5.5 (5.0-7.0)
== END 2018-11-24 18:32 | disposition home or self-care (01) ==
LOC: ER 16:21
DX: M54.5 Low back pain (principal); E11.9 Type 2 diabetes mellitus without complications; M06.9 Rheumatoid arthritis, unspecified; Z88.6 Allergy status to analgesic agent; Z88.0 Allergy status to penicillin; Z79.4 Long term (current) use of insulin
CPT/HCPCS: 72131; 81003; 81025; 96372; 99284

== ENCOUNTER 2023-08-07 13:31 | Inpatient (IN) | payer OTHER ==
--- OUTSIDE RECORDS SUMMARY | 2023-08-07 13:36 | XMS REPORT | Continuity of Care Document ---
:1975 Author Organization [facility] t Address [address] [place] [address] [place] [id number] Care Team Providers Name Role Phone Arsalan PERKINS MD, Vivek Pratt Primary Care Physician [phone] LILI HERNANDEZ Attending Clinician Unavailable SOFIYA RIDDLE Attending Clinician Unavailable Evert IRVIN, Sundar Attending Clinician Lili Tirado Attending Clinician Doctor Unassigned, [place] Attending Clinician Unavailable TORY MOORE Attending Clinician Unavailable Tory Kelley Attending Clinician Saba Stanton RN Attending Clinician Unavailable SUZIE BETANCOURT Attending Clinician Unavailable Freya Killian MA Attending Clinician Unavailable JOSÉ MIGUEL JIMENEZ Attending Clinician Unavailable Therapy, [facility] Covid Infusion Attending Clinician Unavailable José Miguel Jimenez MD Attending Clinician Suzei Betancourt MD Attending Clinician Judy San MD Attending Clinician Janis Nash RN Attending Clinician Unavailable Vanessa Gutierrez MD Attending Clinician Sky , Stacy Arcenio Attending Clinician [phone] Domingo IRVIN, Darion Jalloh Attending Clinician Celsa IRVIN, Fei [place]on Attending Clinician MD VANESSA GUTIERREZ Attending Clinician Unavailable RAMAN COLE Attending Clinician Unavailable FREDI ODONNELL Attending Clinician Unavailable HOMAR PEMBERTON Attending Clinician Unavailable Anna IRVIN, Rivka Boggs Attending Clinician Unavailable VANESSA GUTIERREZ Admitting Clinician Unavailable MD VANESSA GUTIERREZ Admitting Clinician Unavailable Payers Payer Name Policy Type Policy Number Effective Date Expiration Date S allen [facility] [place] STAR [id number] 2016 00:00:00 [facility] PL[facility] [id number] 2020 STAR 00:00:00 Problems Condition Condition Condition Status Onset Resolution Last Treating Co mments Source Name Details Category Date Date Treatment Clinician Date Gastroesop Gastroesop Disease Active 2020-0 U nivers hageal hageal 9-20 ity of reflux reflux 00:00: [place] disease disease 00 Medical Branch Hyperglyce Hyperglyce Disease Active 2020-0 M ethodi alejandra alejandra 03-05 st 00:00: Hospita 00 l Cellulitis Cellulitis Disease Active 2020-0 M ethodi of right of right 03-05 st breast breast 00:00: Hospita 00 l Arthralgia Arthralgia Disease Active 2020-0 U nivers of of 5-07 ity of multiple multiple 00:00: [place] joints joints 00 Medical Branch Furuncle Furuncle Disease Active 2020-0 Unive rs of face of face 1-25 ity of 00:00: [place] 00 Medical Branch Acute Acute Disease Active 2020-0 Univers abscess of abscess of 8-03 it y of maxillary maxillary 00:[place] sinus [place] [facility] Urinary Urinary Disease Active 2020-0 Univers tract tract 8-03 it[place] of infectious infectious [place] disease disease 00 [facility] Chronic Chronic Disease Active 2020-0 Univers pain pain 2-10 ity of 00:00: [place] 00 Medical Branch Radiculopa Radiculopa Disease Active 2020-0 U nivers thy of thy of 2-10 ity of lumbosacra lumbosacra 00:[place] l region l region 00 Medica l Branch Knee pain Knee pain Disease Active Uni vers 2-10 ity of 00:00: [place] 00 Medical Branch Acute Acute Disease Active 2017-10 Univers sinusitis sinusitis 0-01 ity of 00:00: [place] 00 Medical Branch Congestion Congestion Disease Active 2017-10 U nivers of nasal of nasal 0-01 ity of sinus sinus 00:00: [place] [facility] Hyperlipid Hyperlipid Disease Active 2017-10 U nivers emia emia 0-01 ity of 00:00: [place] 00 Medical Branch Increased Increased Disease Active 2017-10 Uni vers frequency frequency 0-01 ity of of of 00:00: [place] urination urination 00 Medi michael Branch Left upper Left upper Disease Active 2017-10 U nivers quadrant quadrant 0-01 ity of pain pain 00:00: [place] [facility] Sore Sore Disease Active 2017-10 Univers throat throat 0-01 ity of 00:00: [place] [facility] Weight Weight Disease Active 2017-10 Univers gain gain 0-01 ity of 00:00: [place] [facility] Thoracic Thoracic Disease Active Unive rs spondylosi spondylosi 6-22 it y of s s 00:00: [place] [facility] Hypertensi Hypertensi Disease Active U nivers on on 4-11 ity of 00:00: [place] [facility] Nausea Nausea Disease Active Univers 4-11 ity of 00:00: [place] [facility] Spasm of Spasm of Disease Active Unive rs back back 4-11 ity of muscles muscles 00:00: [place] [facility] Abdominal Abdominal Disease Active Met hodi pain pain 05-02 00:00: Hospita 00 l Pancreatit Pancreatit Disease Active M ethodi is is 05-02 st 00:00: Hospita 00 l Type 2 Type 2 Disease Active Methodi diabetes diabetes 05-02 st mellitus mellitus 00:00: Hospit a with with 00 l complicati complicati on on Hepatitis Hepatitis Disease Active Met hodi 05-01 00:00: Hospita 00 l Well woman Well woman Disease Active 2015-10 U nivers exam (no exam (no 0-27 ity of gynecologi gynecologi 00:[place]ichael exam[place] michael exam) 00 [facility] Tobacco Tobacco Disease Active 2015-10 Univers use use 0-27 ity of disorder disorder 00:00: [place] [facility] Obesity, Obesity, Disease Active 2015-10 Unive rs unspecifie unspecifie 0-27 it y of d d 00:00: [place] [facility] History of History of Disease Active 2015-10 U nivers diabetes diabetes 0-27 ity of mellitus, mellitus, 00:[place] type II type II [facility] Leakage of Leakage of Disease Active U nivers amniotic amniotic 8-28 ity of fluid fluid 00:00: [place] [facility] Lump or Lump or Disease Active Overview: Univ ers mass in mass in -23 Formattin ity o f breast breast 00:00: g of this [place] note is Medical different Branch from the original. There are scattered fibroglan dular densities (25% - 50% fibroglan dular). Lucent-ce ntered calcifica tions consisten t with fat necrosis are present at the palpable area of concern at 1 o'clock at a distance of 10 cm from the nipple. Left Breast Ultrasoun d: Ultrasoun d demonstra geraldine an oil cyst at 1 o'clock at a distance of 10 cm from the nipple at the palpable area of concern. Smaller oil cysts are seen in the breast. The remainder of the left breast and left axillary ultrasoun d is unremarka ble. IMPRESSIO N:LEFT BREAST: Benign, no evidence of malignanc y. Normal interval follow-up is recommend ed in 12 months. Obesity Obesity Disease Active Overview: Univ ers 4-23 Formattin ity of 00:00: g of this [place] note Medical might be Branch different from the original. 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 Type II on Novalin 70/30 8 units BID on admission to [facility] [place] ed on Split dose Insulin 06/20/14 Anxiety Anxiety Disease Active [facility] and and [place] of depression [place] [facility] [place] Rheumatoid Rheumatoid Disease Active Overview : Univers arthritis arthritis Formattin i ty of g of this [place] note Medical might be Branch different from the original. 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 Allergies, Adverse Reactions, Alerts Allergy Allergy Status Severity Reaction(s) Onset Inactive Treating Comm ents Source Name Type Date Date Clinician EMPAGLIF DRUG Active Other-Cmnt Univ ers LOZIN INGREDI 03-05 ity of 00:00: [place] 00 Medical Branch Empaglif Propensi Active Other - See Pancreat i Univers lozin ty to comments 03-05 tisPancre ity o f adverse 00:00: atitis [place] reaction 00 Medical s Branch Empaglif Propensi Active Other (See Pancreati Methodi lozin ty to Comments) 03-[address] adverse 00:00: Hospita reaction 00 l s to drug Penicill Propensi Active Rash Method i ins ty to 03-05 st adverse 00:00: Hospita reaction 00 l s to drug Penicill Propensi Active Rash Method i ins ty to 03-05 st adverse 00:00: Hospita reaction 00 l s to drug LIRAGLUT DRUG Active Unknown-Cmnt Un jann CHEN INGREDI 05-03 ity of 00:00: [place] 00 Medical Branch Liraglut Propensi Active Unknown - Pancreati Univers chen ty to See comments 05-03 tis ity of adverse 00:00: Pancreati [place] reaction 00 tis Medical s Branch Liraglut Propensi Active Pancreati Met hodi chen ty to 05-[address] adverse 00:00: Hospita reaction 00 l s to drug Aspirin Propensi Active Hives Methodi ty to 05-01 st adverse 00:00: Hospita reaction 00 l s to drug CEFACLOR DRUG Active Unknown-Cmnt Un jann INGREDI 06-24 ity of 00:00: [place] 00 Medical Branch Cefaclor Propensi Active Unknown - Uni vers ty to See comments 06-24 ity of adverse 00:00: [place] reaction 00 Medical s Branch Aspirin Propensi Active Swelling Unive rs ty to 02-17 ity of adverse 00:00: [place] reaction 00 Medical s Branch Penicill Propensi Active Swelling Has taken U nivers ins ty to 02-17 and ity of adverse 00:00: tolerated [place] reaction 00 Amoxicill Medic al s in Branch ASPIRIN DRUG Active Hives Univers INGREDI 4-23 ity of 00:00: [address] PENICILL Drug Active Hives Univers INS Class 4-23 ity of 00:00: [address] Social History Social Habit Start Date Stop Date Quantity Comments Source History of tobacco Cigarette Smoker [facility] use [facility] History SDOH [facility] Alcohol Frequency Hospita l History SDOH [facility] Alcohol Std Drinks Hospit al History SDNY [facility] Sexual orientation [facility] Alcohol intake 2023-06-15 2023-06-15 Current drinker [facility] dist 00:00:00 00:00:00 of alcohol Hospital (finding) History of Social 2023-06-15 2023-06-[address] function 00:00:00 00:00:00 Hospital Exposure to 2022-08-07 2022-08-17 Yes [facility] SARS-CoV-2 (event) 00:00:00 15:02:00 [facility] Cigarettes smoked 2021-03-05 2021-03-05 Methodi current (pack per 00:00:00 00:00:00 Hospita l day) - Reported Tobacco use and 2021-03-05 2021-03-05 Smokeless [facility] exposure 00:00:00 00:00:00 tobacco non-user Hospital Alcohol Comment 2017-05-01 2017-05-01 social [facility] 00:00:00 00:00:00 Hospital Cigarette 2014-06-18 2014-06-18 University of pack-years 00:00:00 00:00:00 [facility] Sex Ass[birth year] At [birth year] [facility] 00:00:00 00:00:00 Hospital Smoking Status Start Date Stop Date Source Smokes tobacco daily 2021-03[facility]05 [facility] sm[facility] 2014-06-18 00:00:00 [facility] ity of [facility] Medications Ordered Filled Start Stop Current Ordering Indication Dosage Frequency Signature Comments Components Source Medication Medication Date Date Medication? Clinician (SIG) Name Name kyara Yes 250mg QD Take 1 Met hodi n 8-[address] (Zithromax 00:00: (250 mg Hosp aline Z-Drew) 250 00 total) by l MG tablet mouth daily. Take 2 tablets the first day, then 1 tablet daily for 4 days. famotidine No 40mg QD Take 1 Meth byron (Pepcid) 40 06-15 tablet (40 s t MG tablet 00:00: 04:59 mg total) Ho spita 00 :00 by mouth l daily for 30 days. albuterol No 2{puff} Q4H Inhale 2 Methodi 90 06-15 08-[address] mcg/actuati 00:00: 04:59 every 4 Ho spita on inhaler 00 :00 (four) l hours as needed for wheezing (cough) for up to 7 days. dexAMETHaso No 6mg QD Take 1 Met hodi ne 06-15-25 tablet (6 st (DECADRON) 00:00: 04:59 mg total) H ospita 6 MG tablet 00 :00 by mouth l daily with breakfast for 5 days. insulin 2021-10 Yes [id number] INJECT 75 Univers aspart 0-21 UNITS ity of protamine-i 00:00: [facility] nsulin 00 USLY WITH Medical aspart BREAKFAST Branch (NOVOLOG AND 65 MIX 70-30 UNITS WITH U-100 DINNER INSULN) 100 unit/mL (70-30) injection blood sugar 2021-10 Yes [id number] Use , TID, Univers diagnostic 0-21 DX:E11.9 ity o f (ONETOUCH 00:00: [place] VERIO TEST 00 Medical STRIPS) Branch strip insulin 2021-10 Yes [id number] INJECT 75 Univers aspart 0-21 UNITS ity of protamine-i 00:00: [facility] nsulin 00 USLY WITH Medical aspart BREAKFAST Branch (NOVOLOG AND 65 MIX 70-30 UNITS WITH U-100 DINNER INSULN) 100 unit/mL (70-30) injection blood sugar 2021-10 Yes [id number] Use , TID, Univers diagnostic 0-21 DX:E11.9 ity o f (ONETOUCH 00:00: [place] VERIO TEST 00 Medical STRIPS) Branch strip insulin 2021-10 Yes [id number] INJECT 75 Univers aspart 0-21 UNITS ity of protamine-i 00:00: [facility] nsulin 00 USLY WITH Medical aspart BREAKFAST Branch (NOVOLOG AND 65 MIX 70-30 UNITS WITH U-100 DINNER INSULN) 100 unit/mL (70-30) injection blood sugar 2021-10 Yes [id number] Use , TID, Univers diagnostic 0-21 DX:E11.9 ity o f (ONETOUCH 00:00: [place] VERIO TEST 00 Medical STRIPS) Branch strip insulin 2021-10 Yes [id number] INJECT 75 Univers aspart 0-21 UNITS ity [facility] prot[facility] Medical aspart BREAKFAST Branch (NOVOLOG AND 65 MIX 70-30 UNITS WITH U-100 DINNER INSULN) 100 unit/mL (70-30) injection blood sugar 2021-10 Yes [id number] Use , TID, Univers diagnostic 0-21 DX:E11.9 ity o f (ONETOUCH 00:00: [place] VERIO TEST 00 Medical STRIPS) Branch strip insulin 2021-10 Yes [id number] INJECT 75 Univers aspart 0-21 UNITS ity of protamine-i 00:00: [facility] nsulin 00 USLY WITH Medical aspart BREAKFAST Branch (NOVOLOG AND 65 MIX 70-30 UNITS WITH U-100 DINNER INSULN) 100 unit/mL (70-30) injection blood sugar 2021-10 Yes [id number] Use , TID, Univers diagnostic 0-21 DX:E11.9 ity o f (ONETOUCH 00:00: [place] VERIO TEST 00 Medical STRIPS) Branch strip insulin 2021-10 Yes [id number] INJECT 75 Univers aspart 0-21 UNITS ity of protamine-i 00:00: [facility] nsulin 00 USLY WITH Medical aspart BREAKFAST Branch (NOVOLOG AND 65 MIX 70-30 UNITS WITH U-100 DINNER INSULN) 100 unit/mL (70-30) injection blood sugar 2021-10 Yes [id number] Use , TID, Univers diagnostic 0-21 DX:E11.9 ity o f (ONETOUCH 00:00: [place] VERIO TEST 00 Medical STRIPS) Branch strip insulin 2021-10 Yes [id number] INJECT 75 Univers aspart 0-21 UNITS ity of protamine-i 00:[facility] WITH Medical aspart BREAKFAST Branch (NOVOLOG AND 65 MIX 70-30 UNITS WITH U-100 DINNER INSULN) 100 unit/mL (70-30) injection blood sugar 2021-10 Yes [id number] Use , TID, Univers diagnostic 0-21 DX:E11.9 ity o f (ONETOUCH 00:00: [place] VERIO TEST 00 Medical STRIPS) Branch strip insulin Yes [id number] INJECT 75 U nivers aspart 9-16 UNITS ity of protamine-i 00:00: [facility] [place] nsulin 00 USLY WITH Medical aspart BREAKFAST Branch (NOVOLOG AND 65 MIX 70-30 UNITS WITH U-100 DINNER INSULN) 100 unit/mL (70-30) injection insulin Yes [id number] INJECT 75 Univers aspart 9-16 UNITS ity of protamine-i 00:00: [facility] [place] nsulin 00 USLY WITH Medical aspart BREAKFAST Branch (NOVOLOG AND 65 MIX 70-30 UNITS WITH U-100 DINNER INSULN) 100 unit/mL (70-30) injection insulin No [id number] INJECT 75 Univers aspart 9-16 10-21 UNITS ity of protamine-i 00:00: 00:00 [facility] [place] nsulin 00 :00 USLY WITH Medical aspart BREAKFAST Branch (NOVOLOG AND 65 MIX 70-30 UNITS WITH U-100 DINNER INSULN) 100 unit/mL (70-30) injection insulin Yes [id number] INJECT 75 U nivers aspart 3-04 UNITS ity of protamine-i 00:00: [facility] [place] nsulin 00 USLY WITH Medical aspart BREAKFAST Branch (NOVOLOG AND 65 MIX 70-30 UNITS WITH U-100 DINNER INSULN) 100 unit/mL (70-30) injection blood sugar Yes [id number] Use , TID, Univers diagnostic 3-04 DX:E11.9 ity o f (ONETOUCH 00:00: [place] VERIO TEST 00 Medical STRIPS) Branch strip insulin Yes [id number] INJECT 75 U nivers aspart 3-04 UNITS ity of protamine-i 00:00: [facility] nsulin 00 USLY WITH Medical aspart BREAKFAST Branch (NOVOLOG AND 65 MIX 70-30 UNITS WITH U-100 DINNER INSULN) 100 unit/mL (70-30) injection blood sugar Yes [id number] Use , TID, Univers diagnostic 3-04 DX:E11.9 ity o f (ONETOUCH 00:00: [place] VERIO TEST 00 Medical STRIPS) Branch strip blood sugar Yes [id number] Use , TID, Univers diagnostic 12-29 DX:E11.9 ity o f (ONETOUCH 00:00: [place] VERIO TEST 00 Medical STRIPS) Branch strip blood sugar Yes [id number] Use , TID, Univers diagnostic 12-29 DX:E11.9 ity o f (ONETOUCH 00:00: [place] VERIO TEST 00 Medical STRIPS) Branch strip blood sugar 2021- No [id number] Use , TID, Univers diagnostic 12-29 10-21 DX:E11.9 ity of (ONETOUCH 00:00: 00:00 [place] VERIO TEST 00 :00 Medical STRIPS) Branch strip insulin 2021- No [id number] INJECT 75 Univers aspart 12-29 09-16 UNITS ity of protamine-i 00:00: 00:00 SUBCUTANEO [place] nsulin 00 :00 USLY WITH Medical aspart BREAKFAST Branch (NOVOLOG AND 65 MIX 70-30 UNITS WITH U-100 DINNER INSULN) 100 unit/mL (70-30) injection HYDROcodone Yes Take by Uni vers -acetaminop 8-27 mouth. ity of hen 7.5-325 14:40: [place] mg per 05 Medical tablet Branch traMADOL 50 Yes Take by Uni vers mg tablet 8-27 mouth. ity of 14:40: [place] 05 Medical Branch lisinopril- Yes 1{tbl} Take 1 Un jann hydrochloro 8-27 tablet by ity of thiazide 14:40: mouth. [place] 10-12.5 mg 05 Medical per tablet Branch cyclobenzap Yes cyclobenza Univers rine 10 mg 8-27 will 10 ity o f tablet 14:40: mg tablet [place] 05 Medical Branch HYDROcodone Yes Take by Uni vers -acetaminop 8-27 mouth. ity of hen 7.5-325 14:40: [place] mg per 05 Medical tablet Branch traMADOL 50 Yes Take by Uni vers mg tablet 8-27 mouth. ity of 14:40: [place] 05 Medical Branch lisinopril- Yes 1{tbl} Take 1 Un jann hydrochloro 8-27 tablet by ity of thiazide 14:40: mouth. [place] 10-12.5 mg 05 Medical per tablet Branch cyclobenzap Yes cyclobenza Univers rine 10 mg 8-27 will 10 ity o f tablet 14:40: mg tablet [place] [facility] HYDROcodone Yes Take by Uni vers -acetaminop 8-27 mouth. ity of hen 7.5-325 14:40: [place] mg per 05 Medical tablet Branch traMADOL 50 Yes Take by Uni vers mg tablet 8-27 mouth. ity of 14:40: [place] [address] Medical Branch lisinopril- Yes 1{tbl} Take 1 Un jann hydrochloro 8-27 tablet by ity of thiazide 14:40: mouth. [place] 10-12.5 mg 05 Medical per tablet Branch cyclobenzap Yes cyclobenza Univers rine 10 mg 8-27 will 10 ity o f tablet 14:40: mg tablet Medical Branch HYDROcodone Yes Take by Uni vers -acetaminop 8-27 mouth. ity of hen 7.5-325 14:40: [place] mg per 05 Medical tablet Branch traMADOL 50 Yes Take by Uni vers mg tablet 8-27 mouth. ity of 14:40: [place] [address] Medical Branch lisinopril- Yes 1{tbl} Take 1 Un jann hydrochloro 8-27 tablet by ity of thiazide 14:40: mouth. [place] 10-12.5 mg 05 Medical per tablet Branch cyclobenzap Yes cyclobenza Univers rine 10 mg 8-27 will 10 ity o f tablet 14:40: mg tablet [place] [address] Medical Branch HYDROcodone Yes Take by Uni vers -acetaminop 8-27 mouth. ity of hen 7.5-325 14:40: [place] mg per 05 Medical tablet Branch traMADOL 50 Yes Take by Uni vers mg tablet 8-27 mouth. ity of 14:40: [place] [address] Medical Branch lisinopril- Yes 1{tbl} Take 1 Un jann hydrochloro 8-27 tablet by ity of thiazide 14:40: mouth. [place] 10-12.5 mg 05 Medical per tablet Branch cyclobenzap Yes cyclobenza Univers rine 10 mg 8-27 will 10 ity o f tablet 14:40: mg tablet [place] 05 Medical Branch HYDROcodone Yes Take by Uni vers -acetaminop 8-27 mouth. ity of hen 7.5-325 14:40: [place] mg per 05 Medical tablet Branch traMADOL 50 Yes Take by Uni vers mg tablet 8-27 mouth. ity of 14:40: [place] [facility] lisinopril- Yes 1{tbl} Take 1 Un jann hydrochloro 8-27 tablet by ity of thiazide 14:40: mouth. [place] 10-12.5 mg 05 Medical per tablet Branch cyclobenzap Yes cyclobenza Univers rine 10 mg 8-27 will 10 ity o f tablet 14:40: mg tablet [place] [facility] HYDROcodone Yes Take by Uni vers -acetaminop 8-27 mouth. ity of hen 7.5-325 14:40: [place] mg per 05 Medical tablet Branch traMADOL 50 Yes Take by Uni vers mg tablet 8-27 mouth. ity of 14:40: [place] [address] Medical Branch lisinopril- Yes 1{tbl} Take 1 Un jann hydrochloro 8-27 tablet by ity of thiazide 14:40: mouth. [place] 10-12.5 mg 05 Medical per tablet Branch cyclobenzap Yes cyclobenza Univers rine 10 mg 8-27 will 10 ity o f tablet 14:40: mg tablet [place] 05 Medical Branch HYDROcodone Yes Take by Uni vers -acetaminop 8-27 mouth. ity of hen 7.5-325 14:40: [place] mg per 05 Medical tablet Branch traMADOL 50 Yes Take by Uni vers mg tablet 8-27 mouth. ity of 14:40: [place] [address] Medical Branch lisinopril- Yes 1{tbl} Take 1 Un jann hydrochloro 8-27 tablet by ity of thiazide 14:40: mouth. [place] 10-12.5 mg 05 Medical per tablet Branch cyclobenzap Yes cyclobenza Univers rine 10 mg 8-27 will 10 ity o f tablet 14:40: mg tablet Medical Branch HYDROcodone Yes Take by Uni vers -acetaminop 8-27 mouth. ity of hen 7.5-325 14:40: [place] mg per 05 Medical tablet Branch traMADOL 50 Yes Take by Uni vers mg tablet 8-27 mouth. ity of 14:40: [place] [address] Medical Branch lisinopril- Yes 1{tbl} Take 1 Un jann hydrochloro 8-27 tablet by ity of thiazide 14:40: mouth. [place] 10-12.5 mg 05 Medical per tablet Branch cyclobenzap Yes cyclobenza Univers rine 10 mg 8-27 will 10 ity o f tablet 14:40: mg tablet [place] [address] Medical Branch HYDROcodone Yes Take by Uni vers -acetaminop 8-27 mouth. ity of hen 7.5-325 14:40: [place] mg per 05 Medical tablet Branch traMADOL 50 Yes Take by Uni vers mg tablet 8-27 mouth. ity of 14:40: [place] [address] Medical Branch lisinopril- Yes 1{tbl} Take 1 Un jann hydrochloro 8-27 tablet by ity of thiazide 14:40: mouth. [place] 10-12.5 mg 05 Medical per tablet Branch cyclobenzap Yes cyclobenza Univers rine 10 mg 8-27 will 10 ity o f tablet 14:40: mg tablet [place] [address] Medical Branch HYDROcodone Yes Take by Uni vers -acetaminop 8-27 mouth. ity of hen 7.5-325 14:40: [place] mg per 05 Medical tablet Branch traMADOL 50 Yes Take by Uni vers mg tablet 8-27 mouth. ity of 14:40: [place] [address] Medical Branch lisinopril- Yes 1{tbl} Take 1 Un jann hydrochloro 8-27 tablet by ity of thiazide 14:40: mouth. [place] 10-12.5 mg 05 Medical per tablet Branch cyclobenzap Yes cyclobenza Univers rine 10 mg 8-27 will 10 ity o f tablet 14:40: mg tablet [place] [address] Medical [place] doxycycline 2020-0 2020- No 100mg Q.5D Take 1 Me thodi (VIBRAMYCIN 6-09 09-[address] ) 100 MG 00:00: 04:59 (100 mg Hospi ta capsule 00 :00 total) by l mouth 2 (two) times a day for 90 days. esomeprazol Yes 20mg QD Take 20 mg Methodi e (NexIUM) 6-[address] 20 MG 10:06: daily Hospita capsule 51 before l breakfast. lisinopril- Yes 1{tbl} QD Take 1 Me thodi hydrochloro 6-[address] thiazide 10:06: mouth Hospita (PRINZIDE,Z 51 daily. l ESTORETIC) 10-12.5 mg per tablet esomeprazol Yes 20mg QD Take 20 mg Methodi e (NexIUM) 6-[address] 20 MG 10:06: daily Hospita capsule 51 before l breakfast. lisinopril- Yes 1{tbl} QD Take 1 Me thodi hydrochloro 6-[address] thiazide 10:06: mouth Hospita (PRINZIDE,Z 51 daily. l ESTORETIC) 10-12.5 mg per tablet clindamycin 2020- No 600mg Q.[id number] Take 2 Methodi (CLEOCIN) 03-[id number] 300 MG 00:00: 04:59 3D (600 mg Hospita capsule 00 :00 total) by l mouth 3 (three) times a day for 12 days. traMADoL 2020- [place] [id number] 50mg Q6H Take 1 Metho di (Ultram) 50 03-0817 tablet (50 s t mg tablet 00:00: 04:59 mg total) Ho spita 00 :00 by mouth l every 6 (six) hours as needed for moderate pain for up to 4 days .acute pain. clindamycin 2020- No 600mg Q.[id number] Take 2 Methodi (CLEOCIN) 03-08- [id number] capsules st 300 MG 00:00: 00:00 3D (600 mg Hospita capsule 00 :00 total) by l mouth 3 (three) times a day for 12 days. [place]DROcodone 2020- [place] [id number] 1.5{tbl Q6H Take 1.5 Methodi -acetaminop 5-09 01-11 } tablets by s cris lyman ([employer]) 22:10: 00:00 mouth Hosp aline 5-325 mg 46 :00 every 6 l per tablet (six) hours as needed for moderate pain .acute pain. sulfamethox 2020- No 1{tbl} Q.5D Take 1 M ethodi azole-trime 5-[address] thoprim 19:39: 00:00 mouth 2 Hospit a (BACTRIM 08 :00 (two) l DS) 800-160 times a mg per day. tablet insulin asp 2020- No 22U Q.5D Inject 22 Methodi prt-insulin 5-09 01-[address] ASPART 18:27: 00:00 under the Hospi ta (NovoLOG 13 :00 skin 2 l 70/30) 100 (two) unit/mL times a (70-30) day before injection meals. insulin asp Yes 75U QD Inject 75 M ethodi prt-insulin 5-[address] ASPART 00:00: under the Hospit a (NovoLOG 00 skin daily l 70/30) 100 before unit/mL breakfast. (70-30) Inject 75 injection units before breakfast under the skin insulin asp Yes 75U QD Inject 75 M ethodi prt-insulin 5-[address] ASPART 00:00: under the Hospit a (NovoLOG 00 skin daily l 70/30) 100 before unit/mL breakfast. (70-30) Inject 75 injection units before breakfast under the skin [place]DROcodone 2020- No [id number] 1.5{tbl Q6H Take 1.5 Methodi -acetaminop -03-18 } tablets by s cris lyman ([employer]) 00:00: 04:59 mouth Hosp aline 5-325 mg 00 :00 every 6 l per tablet (six) hours as needed for moderate pain for up to 10 days .acute pain. Max Daily Amount: 6 tablets clindamycin 2020- No 600mg Q.[id number] Take 2 Methodi (CLEOCIN) -09 01-[id number] 300 MG 00:00: 00:00 3D (600 mg Hospita capsule 00 :00 total) by l mouth 3 (three) times a day for 12 days. insulin asp 2020-0 1- No 65U Q.5D Inject 65 Methodi prt-insulin 5-11 05-[address] ASPART 00:00: 00:00 under the Hospi ta (NovoLOG 00 :00 skin 2 l 70/30) 100 (two) unit/mL times a (70-30) day before injection meals. Inject 75 units before breakfast under the skinInject 65 units before dinner under the skin predniSONE 1-0 Yes Univers 5 mg tablet 1-25 ity of 00:00: [place] 00 [facility] predniSONE 2021-0 Yes Univers 5 mg tablet 1-25 ity of 00:00: [place] [facility] predniSONE 2021-0 Yes Univers 5 mg tablet 1-25 ity of 00:00: [place] [facility] predniSONE 2021-0 Yes Univers 5 mg tablet 1-25 ity of 00:00: [place] [facility] predniSONE 2021-0 Yes Univers 5 mg tablet 1-25 ity of 00:00: [place] [facility] predniSONE 2021-0 Yes Univers 5 mg tablet 1-25 ity of 00:00: [place] [facility] predniSONE 2021-0 Yes Univers 5 mg tablet 1-25 ity of 00:00: [place] 00 [facility] Branch predniSONE 2021-0 Yes Univers 5 mg tablet 1-25 ity of 00:00: [place] 00 Medical Branch predniSONE 2021-0 Yes Univers 5 mg tablet 1-25 ity of 00:00: [place] 00 [facility] Branch predniSONE 2021-0 Yes Univers 5 mg tablet 1-25 ity of 00:00: [place] 00 Medical Branch predniSONE 2021-0 Yes Univers 5 mg tablet 1-25 ity of 00:00: [place] [facility] Branch Insulin 2020-0 Yes [id number] Use as Univ ers Syringe-Nee 3-31 directed. ity of dle U-100 00:00: Twice [place] (INSULIN 00 daily Medical SYRINGE) 1 E11.8 Branch mL 30 gauge x 5/16 Syrg Insulin 2020-0 Yes [id number] Use as Univ ers Syringe-Nee 3-31 directed. ity of dle U-100 00:00: Twice [place] (INSULIN 00 daily Medical SYRINGE) 1 E11.8 Branch mL 30 gauge x 5/16 Syrg Insulin 2020-0 Yes [id number] Use as Univ ers Syringe-Nee 3-31 directed. ity of dle U-100 00:00: Twice [place] (INSULIN 00 daily Medical SYRINGE) 1 E11.8 Branch mL 30 gauge x 5/16 Syrg Insulin 2020-0 Yes [id number] Use as Uni vers Syringe-Nee 3-31 directed. ity of dle U-100 00:00: Twice [place] (INSULIN 00 daily Medical SYRINGE) 1 E11.8 Branch mL 30 gauge x 5/16 Syrg Insulin 2020-0 Yes [id number] Use as Uni vers Syringe-Nee 3-31 directed. ity of dle U-100 00:00: Twice [place] (INSULIN 00 daily Medical SYRINGE) 1 E11.8 Branch mL 30 gauge x 5/16 Syrg Insulin 2020-0 Yes [id number] Use as Uni vers Syringe-Nee 3-31 directed. ity of dle U-100 00:00: Twice [place] (INSULIN 00 daily Medical SYRINGE) 1 E11.8 Branch mL 30 gauge x 5/16 Syrg Insulin 2020-0 Yes [id number] Use as Uni vers Syringe-Nee 3-31 directed. ity of dle U-100 00:00: Twice [place] (INSULIN 00 daily Medical SYRINGE) 1 E11.8 Branch mL 30 gauge x 5/16 Syrg Insulin 2020-0 Yes [id number] Use as Uni vers Syringe-Nee 3-31 directed. ity of dle U-100 00:00: Twice [place] (INSULIN 00 daily Medical SYRINGE) 1 E11.8 Branch mL 30 gauge x 5/16 Syrg Insulin 2020-0 Yes [id number] Use as Uni vers Syringe-Nee 3-31 directed. ity of dle U-100 00:00: Twice [place] (INSULIN 00 daily Medical SYRINGE) 1 E11.8 Branch mL 30 gauge x 5/16 Syrg Insulin 2020-0 Yes [id number] Use as Uni vers Syringe-Nee 3-31 directed. ity of dle U-100 00:00: Twice [place] (INSULIN 00 daily Medical SYRINGE) 1 E11.8 Branch mL 30 gauge x 5/16 Syrg Insulin 2020-0 Yes [id number] Use as Uni vers Syringe-Nee 3-31 directed. ity of dle U-100 00:00: Twice [place] (INSULIN 00 daily Medical SYRINGE) 1 E11.8 Branch mL 30 gauge x 5/16 Syrg Vital Signs Vital Name Observation Time Observation Value Comments Source Systolic blood 2023-04-05 20:29:00 105 mm[Hg] Univer sity of pressure [facility] Diastolic blood 2023-04-05 20:29:00 70 mm[Hg] Unive rsity of pressure [facility] Heart rate 2023-04-05 20:29:00 90 /min Universi ty [facility] Respiratory rate 2023-04-05 20:29:00 20 /min Univ ersity of [facility] Body height 2023-04-05 20:29:00 175.3 cm Universi ty [facility] Body weight 2023-04-05 20:29:00 110.995 kg [facility] BMI 2023-04-05 20:29:00 36.14 kg/m2 [facility] Oxygen saturation in 2023-04-05 20:29:00 97 /min University Arterial blood by [facility] Pulse oximetry Branch Systolic blood 2023-06-15 22:37:00 147 mm[Hg] Method [facility] pressure Diastolic blood 2023-06-15 22:37:00 74 mm[Hg] [facility] [place] pressure Heart rate 2023-06-15 22:37:00 77 /min [facility] Body temperature 2023-06-15 22:37:00 37.17 Lore [facility] Respiratory rate 2023-06-15 22:37:00 19 /min [facility] Body height 2023-06-15 21:50:00 175.3 cm [facility] Body weight 2023-06-15 21:50:00 120.203 kg [facility] BMI 2023-06-15 21:50:00 39.13 kg/m2 [facility] Oxygen saturation in 2023-06-15 21:50:00 99 /min [facility] Arterial blood by Pulse oximetry Systolic blood 2021-03-07 19:53:29 134 mm[Hg] Method [facility] pressure Diastolic blood 2021-03-07 19:53:29 100 mm[facility]Hg[facility] pressure Heart rate 2021-03-07 19:53:29 90 /min [facility] Body temperature 2021-03-07 19:53:29 36.5 Lore [facility] Respiratory rate 2021-03-07 19:53:29 19 /min [facility] Oxygen saturation in 2021-03-07 19:53:29 98 /min [facility] Arterial blood by Pulse oximetry Body height 2021-03-05 21:03:00 175.3 cm [facility] Body weight 2021-03-05 21:03:00 120.203 kg [facility] BMI 2021-03-05 21:03:00 39.13 kg/m2 [facility] Procedures Procedure Date / Time Performing Clinician Source Performed RESPIRATORY PATHOGEN PANEL 2023-06-15 22:16:00 [facility] WITH COVID-19 RT-PCR ECG 12-LEAD 2023-06-15 22:10:59 [facility] ECG ED PRELIMINARY 2023-06-15 22:02:58 [facility] INTERPRETATION POCT HEMOGLOBIN A1C TEST 2023-04-05 20:44:00 Lili Hernandez [facility] ASSIGNMENT OF BENEFITS 2023-04-05 20:21:17 [facility] [place] [facility] EXTERNAL PROVIDER - ADC 2022-11-21 06:01:00 [facility] [place] [facility] POC GLUCOSE 2021-03-07 21:59:00 Vanessa Gutierrez [facility] POC GLUCOSE 2021-03-07 17:11:00 Vanessa Gutierrez [facility] POC GLUCOSE 2021-03-07 13:17:00 Vanessa Gutierrez [facility] POC GLUCOSE 2021-03-07 11:08:00 Vanessa Gutierrez [facility] BASIC METABOLIC PANEL 2021-03-07 09:10:00 [facility] Awa HC COMPLETE BLD COUNT 2021-03-07 09:10:00 [facility] W/AUTO DIFF Awa MAGNESIUM LEVEL 2021-03-07 09:10:00 [facility] Awa PHOSPHORUS LEVEL 2021-03-07 09:10:00 [facility] Awa HEMOGLOBIN A1C 2021-03-07 09:10:00 Suzanne Anguiano [facility] ESTIMATED GFR 2021-03-07 09:10:00 Sho [facility] SMEAR REVIEW 2021-03-07 09:10:00 Sho [facility] POC GLUCOSE 2021-03-07 05:45:00 Sho [facility] POC GLUCOSE 2021-03-07 01:51:00 Sho [facility] POC GLUCOSE 2021-03-06 21:43:00 Sho [facility] SURGICAL PATHOLOGY REQUEST 2021-03-06 17:37:00 Sho [facility] POC GLUCOSE 2021-03-06 16:16:00 Sho [facility] ANAEROBIC CULTURE 2021-03-06 15:47:00 [place], [facility] FUNGUS CULTURE 2021-03-06 15:47:00 [place], [facility] AEROBIC CULTURE 2021-03-06 15:47:00 [place], [facility] AFB CULTURE 2021-03-06 15:47:00 [place], [facility] GRAM STAIN 2021-03-06 15:47:00 [place], [facility] AFB STAIN 2021-03-06 15:47:00 [place], [facility] IN AN ELECTIVE 2021-03-06 15:42:[address] [facility] spital ENDOTRACHEAL AIRWAY Gassan INCISION AND DRAINAGE, 2021-03-06 15:11:00 [place], [facility] ABSCESS, SIMPLE BASIC METABOLIC PANEL 2021-03-06 09:45:00 [facility] Karen MAGNESIUM LEVEL 2021-03-06 09:45:00 [facility] Karen PHOSPHORUS LEVEL 2021-03-06 09:45:00 [facility] Karen TYPE AND SCREEN 2021-03-06 09:45:00 [facility] Karen PROTHROMBIN TIME WITH INR 2021-03-06 09:45:00 Carlos Perez [facility] PARTIAL THROMBOPLASTIN 2021-03-06 09:45:00 Carlos Perez Met [facility] TIME (PTT) HC COMPLETE BLD COUNT 2021-03-06 09:45:00 [facility] W/AUTO DIFF ESTIMATED GFR 2021-03-06 09:45:00 [facility] POC GLUCOSE 2021-03-06 09:11:00 [facility] LACTIC ACID LEVEL 2021-03-06 06:12:00 [facility] POC GLUCOSE 2021-03-06 05:08:00 [facility] POC GLUCOSE 2021-03-06 02:37:00 [facility] LACTIC ACID, I-STAT 2021-03-06 00:22:00 [facility] Awa BETA HYDROXYBUTYRATE 2021-03-06 00:22:00 [facility] [place] IN CRITICAL CARE, E/M 2021-03-05 23:45:36 [facility] 30-74 MINUTES [place] BLOOD CULTURE, AEROBIC & 2021-03-05 23:38:00 [facility] ANAEROBIC [place] POC GLUCOSE 2021-03-05 23:33:[address] [facility] [address] CHEST W CONTRAST 2021-03-05 23:00:50 [facility] [place] COVID-19 QUALITATIVE 2021-03-05 23:00:00 [facility] RT-PCR [place] URINALYSIS 2021-03-05 22:21:00 [facility] ospital [facility] LACTIC ACID, I-STAT 2021-03-05 22:04:00 [facility] [place] VENOUS BLOOD GAS 2021-03-05 22:04:00 [facility] BETA HYDROXYBUTYRATE 2021-03-05 22:04:00 [facility] [place] HCG QUALITATIVE, URINE 2021-03-05 22:04:00 Stacy Swanson [facility] SCREEN [place] BLOOD CULTURE, AEROBIC & 2021-03-05 21:19:00 Stacy Swanson [facility] ANAEROBIC [place] COMPREHENSIVE METABOLIC 2021-03-05 21:19:00 Stacy Swanson Met [facility] PANEL [place] HC COMPLETE BLD COUNT 2021-03-05 21:19:00 [facility] W/AUTO [facility]FF [place] ESTIMATED GFR 2021-03-05 21:19:00 Stacy Swanson [facility] ospital [place] SMEAR REVIEW 2021-03-05 21:19:00 [facility] [place] Plan of Care Planned Activity Planned Date Details Comments Source Future Scheduled 2023-08-07 Screening for [facility] Test 13:33:43 malignant neoplasm of colon (procedure) [code = 291631612] Future Scheduled 2023-08-07 Screening for [facility] Test 13:33:43 malignant neoplasm of colon (procedure) [code = 066676530] Future Scheduled 2023-08-07 HEPATITIS B VACCINES Met [facility] Test 13:33:43 (1 of 3 - 3-dose series) [code = HEPATITIS B VACCINES (1 of 3 - 3-dose series)] Future Scheduled 2023-08-07 Screening for [facility] Test 13:33:43 malignant neoplasm of colon (procedure) [code = 133058448] Future Scheduled 2023-08-07 COVID-19 VACCINE (#1) [facility] Test 13:33:43 [code = COVID-19 VACCINE (#1)] Future Scheduled 2023-08-07 Pneumococcal Vaccine: [facility] Test 13:33:43 Pediatrics (0 to 5 Years) and At-Risk Patients (6 to 64 Years) (1 - PCV) [code = Pneumococcal Vaccine: Pediatrics (0 to 5 Years) and At-Risk Patients (6 to 64 Years) (1 - PCV)] Future Scheduled 2023-08-07 DIABETES: RETINAL EYE [facility] Test 13:33:43 EXAM [code = DIABETES: RETINAL EYE EXAM] Future Scheduled 2023-08-07 DIABETIC FOOT EXAM [facility] Test 13:33:43 [code = DIABETIC FOOT EXAM] Future Scheduled 2023-08-07 URINE MICROALBUMIN [facility] Test 13:33:43 [code = URINE MICROALBUMIN] Future Scheduled 2023-08-07 Screening for [facility] Test 13:33:43 malignant neoplasm of cervix (procedure) [code = 548770129] Future Scheduled 2023-08-07 BREAST CANCER [facility] Test 13:33:43 SCREENING [code = BREAST CANCER SCREENING] Future Scheduled 2023-08-07 Screening for [facility] Test 13:33:43 malignant neoplasm of colon (procedure) [code = 885239452] Future Scheduled 2023-08-07 Screening for [facility] Test 13:33:43 malignant neoplasm of colon (procedure) [code = 191585668] Future Scheduled 2023-08-07 INFLUENZA VACCINE (#1) [facility] 13:33:43 [code = INFLUENZA VACCINE (#1)] Future Scheduled 2021-08-30 COVID-19 VACCINE (1) [facility] Test 16:51:04 [code = COVID-19 VACCINE (1)] Future Scheduled 2021-08-30 DIABETES: [facility]INAL [facility]YE [facility] Test 16:51:04 EXAM [code = DIABETES: RETINAL EYE EXAM] Future Scheduled 2021-08-30 DIABETIC FOOT EXAM [facility] Test 16:51:04 [code = DIABETIC FOOT EXAM] Future Scheduled 2021-08-30 URINE MICROALBUMIN [facility] Test 16:51:04 [code = URINE MICROALBUMIN] Future Scheduled 2021-08-30 Scre[facility] Test 16:51:04 malignant neoplasm of cervix (procedure) [code = 238079870] Future Scheduled 2021-08-30 [facility]UENZA [facility]ACCINE [facility] Test 16:51:04 [code = INFLUENZA VACCINE] Encounters Start End Encounter Admission Attending Care Care Encounter Source Date/Time Date/Time Type Type Clinicians Facility Department ID 2023-07-09 2023-07-09 Outpatient R VERN [facility] [id number] Univers 15:30:00 15:30:00 LILI flynn [facility] 2023-06-15 2023-06-15 Emergency Evert, 1.2.840.1 [id number] Methodi 16:43:00 17:38:[address] 3.430.2.7 Hospit a .3.857384 l .8 2023-06-15 2023-06-15 Emergency EVERT [facility] [id number] [place] 00:00:00 00:00:00 SUNDAR [address] 2023-06-07 2023-06-07 [facility] [id number] Univers 00:00:00 00:00:00 [facility] 2023-05-14 2023-05-14 [facility] [id number] Univers 00:00:00 00:00:00 [facility] 2023-04-16 2023-04-16 Telephone [facility] [id number] Univers 00:00:00 00:00:00 [facility] [id number] it [facility] 4.2.7.2.686 Christopher as LYNDON?BLEA [id number] [address] MEDICAL OFFICE [facility] 2023-04-05 2023-04-05 Outpatient R [facility] [id number] Univers 15:30:00 17:04:04 [facility] 2023-04-05 2023-04-05 Office [facility] [id number] Univers 15:30:00 17:04:04 Visit [facility] [id number] it y of [place] 4.2.7.2.686 Christopher as LYNDON?BLEA [id number] [address] MEDICAL OFFICE BUILDING 2023-04-05 2023-04-05 Orders Doctor RAI 1.2.840.114 [id number] Univers 00:00:00 00:00:00 Only Unassigned, ZOË 350.1.13.10 ity of [place] [facility] 4.2.7.2.686 Christopher as [id number] [address] 2023-03-29 2023-03-29 Outpatient R [facility] [id number] Univers 16:00:00 16:00:00 [facility] 2023-03-19 2023-03-19 Outpatient R [facility] [id number] Univers 14:30:00 14:30:00 [facility] 2023-03-15 2023-03-15 Outpatient R [facility] [id number] Univers 15:30:00 15:30:00 [facility] 2023-03-08 2023-03-08 Outpatient R [facility] [id number] Univers 16:00:00 16:00:00 [facility] 2023-03-01 2023-03-01 Outpatient R [facility] [id number] Univers 14:00:00 14:00:00 [facility] 2023-02-26 2023-02-26 Outpatient R [facility] [id number] Univers 16:00:00 16:00:00 [facility] 2022-11-21 2022-11-21 Orders Doctor FREDI 1.2.840.114 [id number] Univers 00:00:00 00:00:00 Only Unassigned, ZOË 350.1.13.10 ity of [place] [facility] 4.2.7.2.686 Christopher as [id number] [address] 2022-08-17 2022-08-17 Outpatient R [facility] [id number] Univers 15:30:00 15:30:00 [facility] 2022-08-17 2022-08-17 Telephone [facility] [id number] Univers 00:00:00 00:00:00 [facility] Face++ 350.1.13.10 it y of [place] 4.2.7.2.686 Christopher as LYNDON?BLEA [id number] [address] MEDICAL OFFICE BUILDING 2022-07-13 2022-07-13 Telephone [facility] [id number] Univers 00:00:00 00:00:00 Tory HEALTH 350.1.13.10 it y of [place] 4.2.7.2.686 Christopher as LYNDON?BLEA [id number] [address] OFFICE [facility] 2022-07-04 2022-07-04 Jacob Stanton TESFAYE 1.2.840.114 [id number] Univers 00:00:00 00:00:00 , Saba Fields DESHAUN 350.1.13.10 [place] [id number] [address] 2022-06-29 2022-06-29 [facility] 1.2.840.114 [id number] Univers 00:00:00 00:00:00 Tory HEALTH 350.1.13.10 [facility] 4.2.7.2.686 Christopher as LYNDON?BLEA [id number] [address] 2022-06-08 2022-06-08 Outpatient Ovidio MOORE [facility] [id number] Univers 15:00:00 15:00:00 TORY ity [facility] 2022-05-01 2022-05-01 Outpatient Ovidio BETANCOURT [facility] [id number] Univers 14:00:00 14:00:00 WENTONG ity [facility] 2022-04-09 2022-04-09 TESFAYE Neville 1.2.840.114 [id number] Univers 00:00:00 00:00:00 Management Freya MEADE 350.1.13.10 [place] [id number] [address] 2021-12-29 2021-12-29 Outpatient Ovidio [facility] [id number] Univers 15:00:00 15:27:45 TORY ity [facility] 2021-12-29 2021-12-29 Orders Doctor ARI 1.2.840.114 [id number] Univers 00:00:00 00:00:00 Only Unassigned, ZOË 350.1.13.10 ity of [place] [facility] 4.2.7.2.686 Christopher as [id number] [facility] 009 [place] 2021-12-15 2021-12-15 Outpatient R [facility] [id number] Univers 14:00:00 14:00:00 TORY ity [facility] 2021-11-14 2021-11-14 [facility] 1.2.840.114 [id number] Univers 00:00:00 00:00:00 Tory HEALTH 350.1.13.10 it y of [place] 4.2.7.2.686 Christopher as LYNDON?BLEA [id number] [address] MEDICAL OFFICE [facility] 2021-11-07 2021-11-07 Outpatient R [facility] [id number] Univers 14:30:00 14:30:00 [facility] 2021-11-07 2021-11-07 [facility] 1.2.840.114 [id number] Univers 00:00:00 00:00:00 Tory HEALTH 350.1.13.10 it y of [place] 4.2.7.2.686 Christopher as LYNDON?BLEA [id number] [address] 2021-10-12 2021-10-12 Telephone [facility] [id number] Univers 00:00:00 00:00:00 Tory HEALTH 350.1.13.10 it y of [place] 4.2.7.2.686 Christopher as LYNDON?BLEA [id number] [address] MEDICAL OFFICE [facility] 2021-10-06 2021-10-06 Outpatient R [facility] [id number] Univers 11:30:00 11:30:00 TORY [facility] 2021-08-03 2021-08-03 Tesfaye Neville 1.2.840.114 [id number] Univers 00:00:00 00:00:00 Management Ferya Meade 350.1.13.10 ity of [place] [id number] [address] 2021-07-22 2021-07-22 Outpatient R RUTH [facility] [id number] Univers 09:00:00 09:00:00 JOSÉ MIGUEL ity [facility] 2021-07-22 2021-07-22 Nurse Therapy, Adc Covid Infusion [facility] 1.2.840.114 [id number] Univers 07:35:57 08:35:57 Visit José Miguel Jimenez 350.1.13.10 it[place] of [place] [id number] [place] [id number] [place] 2021-07-22 2021-07-22 Orders Doctor FREDI 1.2.840.114 [id number] Univers 00:00:00 00:00:00 Only Unassigned, ZOË 350.1.13.10 ity of [place] [facility] 4.2.7.2.686 Christopher as [id number] [facility] 009 [place] 2021-07-17 2021-07-17 Telephone Romy Carlin 1.2.840.114 [id number] Univers 00:00:00 00:00:00 , Saba [place] 350.1.13.10 ity of [place] [id number] [address] 2021-06-26 2021-06-26 Outpatient R [facility] [id number] Univers 11:00:00 11:00:00 ity [facility] 2021-06-23 2021-06-23 Office [facility] 1.2.840.114 [id number] Univers 14:25:43 15:03:59 Visit [facility] 350.1.13.10 it y of [place] 4.2.7.2.686 Christopher as Lyndon?Blea [id number] Ms satish [address] Medical Office Building 2021-06-23 2021-06-23 Outpatient R KEMI [facility] [id number] Univers 14:00:00 14:00:00 TORY [facility] 2021-06-21 2021-06-21 Refoscar Betancourt [facility] 1.2.840.114 [id number] Univers 00:00:00 00:00:00 Wentong [place] 350.1.13.10 i ty [place] Profess[place] [id number] [address] 2021-06-21 2021-06-21 [facility]ill [facility] 1.2.840.114 [id number] Univers 00:00:00 00:00:00 Wentong [place] 350.1.13.10 i ty [place] Profess[place] [id number] [address] 2021-06-02 2021-06-02 Outpatient R KEMI [facility] [id number] Univers 14:00:00 14:00:00 [facility] 2021-05-23 2021-05-23 Outpatient R KEMI [facility] [id number] Univers 14:00:00 14:00:00 [facility] 2021-05-08 2021-05-08 Refoscar [facility] 1.2.840.114 [id number] Univers 00:00:00 00:00:00 Wentong [place] 350.1.13.10 i [place] [id number] [address] 2021-04-18 2021-04-18 Outpatient R AUGUSTO [facility] [id number] Univers 15:00:00 15:00:00 [facility] 2021-04-04 2021-04-04 Telephone [place], 1.2.840.6 [id number] Methodi 10:06:21 11:00:45 Consult Judy 91328.1.[address] Jenni 3.430.2.7 Hospit a .[id number] l .8 2021-04-03 2021-04-03 [facility] 1.2.840.114 [id number] Univers 00:00:00 00:00:00 [place] 350.1.13.10 i ty [place] 4[place]2.7.2.686 [place] [facility] [id number] Ms dical nal [address] 2021-03-28 2021-03-28 Telephone San, 1.2.840.1 [id number] Methodi 00:00:00 00:00:[address] Jenni 3.430.2.7 Hospit a .3.564760 l .8 2021-03-28 2021-03-28 Travel 1.2.840.1 1.2.462.243 [id number] Methodi 00:00:00 00:00:[address] 3.430.2.7 0.2.7.3.698 Ho spita .3.532318 084.8 l .8 2021-03-24 2021-03-24 Travel 1.2.840.1 1.2.969.275 [id number] Methodi 00:00:00 00:00:[address] 3.430.2.7 0.2.7.3.698 Ho spita .3.166812 084.8 l .8 2021-03-23 2021-03-23 Travel 1.2.840.1 1.2.534.887 [id number] [id number] Methodi 00:00:00 00:00:[address] 3.430.2.7 0.2.7.3.698 Ho spita .3.163892 084.8 l .8 2021-03-21 2021-03-21 Telephone San, 1.2.840.2 [id number] Methodi 00:00:00 00:00:[address] Jenni 3.430.2.7 Hospit a .3.851027 l .8 2021-03-21 2021-03-21 Travel 1.2.840.1 1.2.326.556 7835 [id number] Methodi 00:00:00 00:00:[address] 3.430.2.7 0.2.7.3.698 Ho spita .3.066911 084.8 l .8 2021-03-16 2021-03-16 Travel 1.2.840.1 1.2.468.072 2749 [id number] Methodi 00:00:00 00:00:[address] 3.430.2.7 0.2.7.3.698 Ho spita .3.547065 084.8 l .8 2021-03-08 2021-03-08 Patient Saad, 1.2.840.1 [id number] Methodi 00:00:00 00:00:00 Outreach Janis 87637.1.[address] 3.430.2.7 Hospit a .3.108897 l .8 2021-03-08 2021-03-08 Orders Sho, 1.2.840.1 [id number] 0164 Methodi 00:00:00 00:00:00 Only Vanessa 17171.1.[address] [place] 3.430.2.7 Hospit a .3.476813 l .8 2021-03-08 2021-03-08 Travel 1.2.840.1 1.2.237.174 9809 [id number] Methodi 00:00:00 00:00:[address] 3.430.2.7 0.2.7.3.698 Ho spita .3.479742 084.8 l .8 2021-03-08 2021-03-08 Telephone San, 1.2.840.5 [id number] Methodi 00:00:00 00:00:[address] Jenni 3.430.2.7 Hospit a .3.721868 l .8 2021-03-05 2021-03-07 [facility] Stacy Arcenio 1.2.840.1 [id number] Methodi 15:56:00 19:39:00 Encounter Vanessa Gutierrez 10993.1.[address] 3.430.2.7 Hospit a .3.686616 l .8 2021-03-07 2021-03-07 Orders Sho, 1.2.840.1 [id number] Methodi 00:00:00 00:00:00 Only Vanessa 29236.1.[address] [place] 3.430.2.7 Hospit a .3.590743 l .8 2021-03-06 2021-03-06 Surgery San, 1.2.840.1 [id number] Methodi 10:30:00 11:55:[address] Jenni 3.430.2.7 Hospit a .3.067757 l .8 2021-03-06 2021-03-06 Anesthesia Darion Lanegiovanni 1.2.840.1 [id number] Methodi 10:11:00 11:16:00 Event Fei Steen 02792.1.[address] 3.430.2.7 Hospit a .3.005590 l .8 2021-03-04 2021-03-[address] [facility] [id number] [place] 04:25:58 04:25:58 [facility] 2021-02-16 2021-02-16 Outpatient Ovidio BETANCOURT [facility] [id number] Univers 00:00:00 00:00:00 SUZIE [facility] 2020-12-30 2020-12-30 [facility] 1.2.840.015 [id number] Univers 00:00:00 00:00:00 Suzie Pillai 350.1.13.10 i [place] 4.2.7.2.686 Anna Barnard [phone] Ms dical [address] 2020-12-27 2020-12-27 [facility] [id number] Univers 00:00:00 00:00:00 SUZIE [facility] 2020-12-23 2020-12-23 [facility] 1.2.401.203 [id number] Univers 00:00:00 00:00:00 Suzie Pillai 350.1.13.10 [place] [phone] [address] 2020-12-06 2020-12-06 [facility] 1.2.840.114 [id number] Univers 14:51:55 16:27:39 Visit Suzie Pillai 350.1.13.10 i [place] [phone] [address] 2020-12-06 2020-12-06 Outpatient R AUGUSTO [facility] [id number] Univers 15:00:00 15:00:00 WENTONG ity [facility] 2020-11-02 2020-11-02 [facility]ill [facility] 1.2.840.114 [id number] Univers 00:00:00 00:00:00 Suzie [place] 350.1.13.10 [place] [phone] [address] 2020-08-16 2020-08-16 Outpatient R AUGUSTO [facility] [id number] Univers 15:00:00 15:00:00 [place] ity [facility] 2020-08-16 2020-08-16 [facility] 1.2.840.114 [id number] Univers 00:00:00 00:00:00 Suzie Pillai 350.1.13.10 [place] [phone] [address] 2020-07-08 2020-07-08 Emergency FREDI ODONNELL [facility] [id number] 1401 [place] 00:00:00 00:00:[address] 2020-05-31 2020-05-31 [facility]medici [facility] 1.2.840.114 [id number] Univers 13:42:54 14:12:54 ne Visit Suzie Pillai 350.1.13.10 [place] [phone] [address] 2020-05-31 2020-05-31 Outpatient R AUG[facility]O [facility] [id number] Univers 14:00:00 14:00:00 [facility] 2020-01-26 2020-01-26 [facility]ici [facility] 1.2.840.114 [id number] Univers 08:28:13 15:55:39 ne Visit [facility] 350.1.13.10 [facility] 4[place] [phone] [address] 2020-01-26 2020-01-26 Outpatient R AUGUSTO [facility] [id number] Univers 15:00:00 15:00:00 [facility] 2019-11-22 2019-11-22 Emergency NIECY, [facility] [id number] [address] [place] [address] 00:00:00 00:00:00 [address]OM[address] [facility] i [facility] 2019-11-12 2019-11-12 [facility] 1.2.840.114 [id number] Univers 00:00:00 00:00:00 Rivka [place] 350.1.13.10 i ty of [facility] [place].2.[place] [phone] [address] 2019-07-14 2019-07-14 [facility] 1.2.840.114 [id number] Univers 00:00:00 00:00:00 Rivka [place] 350.1.13.10 i ty [place] 4[place]2.[place] [phone] [address] Results Test Description Test Time Test Comments Results Result Comments Source ECG 12 lead 2023 16:42:15 Test Item Value Reference Range Interpretation Comme nts Ventricular rate (test code = 253) 71 Atrial rate (test code = 255) 71 IN interval (test code = 266) 160 QRSD interval (test code = 260) 76 QT interval (test code = 264) 408 QTC interval (test code = 265) 443 P axis 1 (test code = 267) 61 QRS axis 1 (test code = 268) 26 T wave axis (test code = 270) 19 EKG impression (test code = 273) Normal sinus rhythm-Nonspecific T wave abnormality-Abnormal ECG-In automated comparison with ECG of 02-MAY-2017 04:29,-Nonspecific T wave abnormality now evident in Anterolateral leads- [facility] HEMOGLOBIN A1C [id number] 20:44:00 Test Item Value Reference Range Interpretation Comments POCT HBA1C (test code = 4548-4) 10.9 % 4-6 A Lab Interpretation (test code = Abnormal 26628-2) [facility] HEMOGLOBIN A1C [id number] 20:44:00 Test Item Value Reference Range Interpretation Comments POCT HBA1C (test code = 4548-4) 10.9 % 4-6 A Lab Interpretation (test code = Abnormal 08673-0) [facility] [id number] 05:13:32 Test Item Value Reference Range Interpretation Comments AFB culture No growth Specimen isolate (test after 6 weeks InformationSp ecimen code = 543-9) of Source: Absces sSpecimen incubation. [facility] [id number] 05:15:24 Test Item Value Reference Range Interpretation Comments Fungus culture No growth Specimen isolate (test after 4 weeks InformationSp ecimen code = 1441) of Source: Abscess Specimen incubation. [facility] [id number] 19:42:20 Test Item Value Reference Range Interpretation Comments Anaerobic No anaerobic Specimen culture isolate organisms InformationS pecimen (test code = isolated. Source: Abscess Specimen 552) [facility] [id number] 19:42:20 Test Item Value Reference Range Interpretation Comments AFB stain No acid fast Specimen (test code = bacilli (AFB) InformationSpe [facility] 6[facility]-7) seen. Source: Abscess Specimen [facility] [id number] 19:42:20 Test Item Value Reference Interpretation Comments Range Aerobic culture Actinomyces A Specimen isolate (test code neuiiFew Informati onSpecimen = 498) Source: Abscess Specimen Site: Breast Lab Interpretation Abnormal (test code = 17391-9) [facility] [id number] 19:42:20 Test Item Value Reference Range Interpretation Comments Fungus smear No fungi Specimen (test code = observed. InformationSpec imen Source: 1443) AbscessSpecimen Site: Breast [facility] Center[facility] [id number] 19:42:20Gram stain isolateMany WBC'sFew Gram positive cocci in clustersFew Gram positive rods Comment: Specimen InformationSpecimen Source: AbscessSpecimen Site: [facility] [id number] 14:29:47 Test Item Value Reference Range Interpretation Comments Case number (test [id number] code = 6416714) Surgical pathology See link below for PDF report (test code = Lab Report 2255) Result status (test This is Supplemental code = 4540767) Report for [id number] [facility] RNA [Presence] in Respiratory specimen by ANISHA with probe [id number] 23:30:23 Test Item Value Reference Range Interpretation Comments SARS-CoV-2 (COVID-19) RNA Not detected Not-Detected [Presence] in Respiratory specimen by ANISHA with probe detection (test code = 09200-5) Whether 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
[2023-08-07 13:49] LABS: Absolute Lymphocytes (CBC) 2.6 K/uL (0.7-4.9); Lymphocytes % 19.6 % (15.3-44.8); MCV 68.6 fL (80-100); MPV 6.3 fL (7.6-11.3); Platelets 522 thou/uL (152-406); RBC Red Blood Cell Count 4.23 M/uL (3.86-4.86)
[2023-08-07 13:51] LABS: Protime INR 1.05
[2023-08-07 13:57] LABS: SARS-CoV-2 Antigen Rapid Res Negative (Negative)
[2023-08-07 14:05] LABS: ALT/SGPT 147 U/L (13-56); AST/SGOT 129 U/L (15-37); Albumin 2.8 g/dL (3.4-5.0); Alkaline Phosphatase 196 U/L (45-117); BUN Blood Urea Nitrogen 12 mg/dL (7-18); Bicarbonate 27 mEq/L (21-32); Bilirubin Total 0.3 mg/dL (0.2-1.0); Glomerular Filtration Rate 66 ml/min (=/>90); Glucose Level 262 mg/dL (74-106); Lipase 29 U/L (13-75); Magnesium 1.8 mg/dL (1.6-2.4); NT PRO-BNP 2733 pg/mL (<125); Potassium 3.5 mEq/L (3.5-5.1); Protein, Total 7.8 g/dL (6.4-8.2); Sodium Level 137 mEq/L (136-145)
[2023-08-07] MEDS ORDERED: NITROGLYCERIN 0.4 MG/TAB SL ONE ×2 (14:13→14:42)
[2023-08-07] MEDS ORDERED: ONDANSETRON 4 MG/2 ML VIAL ONE ×2 (14:13→14:42)
[2023-08-07] MEDS ORDERED: MORPHINE 4 MG/ML SYR ONE ×2 (14:13→14:41)
[2023-08-07 14:17] LABS: Bilirubin Direct < 0.1 mg/dL (0-0.2); Bilirubin Indirect, Calculated ND mg/dL (0.2-0.8)
[2023-08-07 14:18] LABS: Troponin High Sensitivity 283.4 pg/mL (<58.9)
[2023-08-07 14:30] LABS: Blood Morphology Comment NOTED (NOT SEEN); Hypochromasia 1+; Platelet Estimate INCR; White Blood Cell Scan OK (OK)
[2023-08-07] MEDS ORDERED: OSELTAMIVIR 75 MG CAP PO ONE (14:40)
--- NOTE | 2023-08-07 15:01 | RAD REPORT ---
EXAM DESCRIPTION: RAD - Chest Single View - 08/07/2023 2:56 pm CLINICAL HISTORY: CHEST PAIN Chest pain. COMPARISON: <Comparisons> FINDINGS: Portable technique limits examination quality. Mild interstitial pulmonary edema suspected. The heart is upper limit of normal in size. No displaced fractures.
--- NOTE | 2023-08-07 15:16 | EDPHYS ---
Physician Documentation [facility] Name: Fernanda Chong Age: 48 yrs Sex: Female : 1975 Arrival Date: 08/07/2023 Time: 13:31 Bed 5 Private MD: ED Physician Gaurav Craig HPI: 08/07 13:48 This 48 yrs old Black Female presents to ER via EMS with complaints of Chest Pain. sb4 13:49 The patient or guardian reports chest pain that is located primarily in the substernal sb4 area. Onset: this morning. The pain radiates to the left arm. Associated signs and symptoms: Pertinent positives: abdominal pain, shortness of breath. The chest pain is described as a pressure, squeezing. Modifying factors: The symptoms are alleviated by NTG, X1. EMS care prior to arrival includes: nitroglycerin, x 1, with partial relief of the chest pain, supplemental oxygen. Historical: - Allergies: 13:43 Aspirin; iw 13:43 PENICILLINS; iw - PMHx: 13:43 Asthma; Diabetes - IDDM; Panic Attacks; Rheumatoid Arthritis; iw - Immunization history:: Adult Immunizations unknown. - Social history:: Smoking status: Patient reports the use of cigarette tobacco products. ROS: 13:49 Constitutional: Negative for fever, chills, and weight loss, sb4 13:49 ENT: Positive for sinus congestion, 13:49 Cardiovascular: Positive for chest pain, 13:49 Respiratory: Positive for shortness of breath, 13:49 Abdomen/GI: Positive for abdominal pain, 13:49 All other systems are negative, Exam: 13:49 Head/Face: Normocephalic, atraumatic. Eyes: Extra-ocular motions intact. Periorbital sb4 areas with no swelling, redness, or edema. ENT: Mucous membranes moist. Cardiovascular: Regular rate and rhythm with a normal S1 and S2. Respiratory: Lungs have equal breath sounds bilaterally, clear to auscultation and percussion. No rales, rhonchi or wheezes noted. No increased work of breathing, no retractions or nasal flaring. Back: No spinal tenderness. No costovertebral tenderness. Full range of motion. Skin: Warm, dry with normal turgor. Normal color with no rashes, no lesions, and no evidence of cellulitis. MS/ Extremity: Pulses equal, no cyanosis. Neurovascular intact. Full, normal range of motion. Neuro: Awake and alert, GCS 15, oriented to person, place, time, and situation. Motor strength 5/5 in all extremities. Sensory grossly intact. 13:49 Constitutional: The patient appears alert, awake, obese, crying 13:49 ECG was reviewed by the Attending Physician. 13:49 Abdomen/GI: Inspection: abdomen appears normal, obese Palpation: soft, moderate abdominal tenderness, in the epigastric area, Vital Signs: 14:00 BP 132 / 87; Pulse 102; Resp 12; Temp 98.4(O); Pulse Ox 97% on R/A; Pain 10/10; me1 15:17 BP 146 / 94; Pulse 87; Resp 18; Pulse Ox 99% on R/A; me1 16:50 BP 141 / 100; tm6 17:04 BP 136 / 85; Pulse Ox 100% on R/A; tm6 19:15 Weight 110.4 kg; jb4 14:00 Pain Scale: Adult me1 MDM: 13:33 Patient medically screened. sb4 13:57 Differential diagnosis: esophagitis, gastritis, pancreatitis, unstable angina, covid, sb4 flu. The patient was not given aspirin in the Emergency Department. Not indicated due to patient's past medical history. Scoring Tools HEART Score: History: ECG: Age: Risk Factors: > or = 3 Risk factors for atherosclerotic disease (2), Troponin: Total Score = 7. 15:14 Data reviewed: vital signs, nurses notes, lab test result(s), EKG, radiologic studies, sb4 I have discussed the patient's presentation/case with the attending Emergency Department Physician; and as a result, I will admit patient. Consideration of Admission/Observation Patient was admitted/placed on observation. Care significantly affected by the following chronic conditions: Diabetes, Hypertension, Obesity. Counseling: I had a detailed discussion with the patient and/or guardian regarding the historical points, exam findings, and any diagnostic results supporting the discharge/admit diagnosis, the presence of at least one elevated blood pressure reading (>120/80) during this emergency department visit, lab results, radiology results, the need for further work-up and treatment in the hospital. 08/07 13:34 Order name: Basic Metabolic Panel; Complete Time: 14:21 sb4 08/07 13:34 Order name: CBC with Diff; Complete Time: 14:31 sb4 08/07 13:34 Order name: LFT's; Complete Time: 14:21 sb4 08/07 13:34 Order name: Magnesium; Complete Time: 14:21 sb4 08/07 13:34 Order name: NT PRO-BNP; Complete Time: 14:21 sb4 08/07 13:34 Order name: PT-INR; Complete Time: 13:58 sb4 08/07 13:34 Order name: Troponin HS; Complete Time: 14:21 sb4 08/07 13:34 Order name: Lipase; Complete Time: 14:21 sb4 08/07 13:34 Order name: Flu; Complete Time: 14:11 sb4 08/07 13:34 Order name: SARS RAPID; Complete Time: 13:58 sb4 08/07 14:30 Order name: CBC Smear Scan; Complete Time: 14:31 EDMS 08/07 16:12 Order name: Thyroid Stimulating Hormone EDMS 08/07 16:12 Order name: Urinalysis w/ reflexes EDMS 08/07 16:12 Order name: Basic Metabolic Panel EDMS 08/07 16:12 Order name: Basic Metabolic Panel EDMS 08/07 16:12 Order name: Basic Metabolic Panel EDMS 08/07 16:12 Order name: Basic Metabolic Panel EDMS 08/07 16:12 Order name: CBC with Automated Diff EDMS 08/07 16:12 Order name: CBC with Automated Diff EDMS 08/07 16:12 Order name: CBC with Automated Diff EDMS 08/07 16:12 Order name: CBC with Automated Diff EDMS 08/07 16:12 Order name: Lipid Profile EDMS 08/07 16:12 Order name: Lipid Profile EDMS 08/07 16:12 Order name: Magnesium EDMS 08/07 16:12 Order name: Magnesium EDMS 08/07 16:12 Order name: Magnesium EDMS 08/07 16:12 Order name: Magnesium EDMS 08/07 16:12 Order name: Phosphorus EDMS 08/07 16:12 Order name: Phosphorus EDMS 08/07 16:12 Order name: Phosphorus EDMS 08/07 16:12 Order name: Phosphorus EDMS 08/07 16:12 Order name: Troponin High Sensitivity EDMS 08/07 16:12 Order name: Troponin High Sensitivity EDMS 08/07 16:12 Order name: Troponin High Sensitivity EDMS 08/07 16:12 Order name: Troponin High Sensitivity EDMS 08/07 13:34 Order name: XRAY Chest (1 view); Complete Time: 15:03 sb4 08/07 16:20 Order name: Chest For Pe Angio; Complete Time: 17:07 EDMS 08/07 16:22 Order name: Echo with Doppler EDMS 08/07 13:34 Order name: EKG; Complete Time: 13:35 sb4 08/07 15:50 Order name: CONS Physician Consult EDMS 08/07 13:34 Order name: Cardiac monitoring; Complete Time: 13:41 sb4 08/07 13:34 Order name: EKG - Nurse/Tech; Complete Time: 13:38 sb4 08/07 13:34 Order name: IV Saline Lock; Complete Time: 13:41 sb4 08/07 13:34 Order name: Labs collected and sent; Complete Time: 13:41 sb4 08/07 13:34 Order name: O2 Per Protocol; Complete Time: 13:42 sb4 08/07 13:34 Order name: O2 Sat Monitoring; Complete Time: 13:42 sb4 EC:49 Rate is 90 beats/min. Rhythm is regular, Normal Sinus Rhythm. [place] interval is normal at sb4 142 msec. QRS interval is normal at 80 msec. QT interval is normal at 402 msec. Clinical impression: NSR w/ Non-specific ST/T Changes. Interpreted by me. Reviewed by me. Administered Medications: 14:06 Drug: Nitroglycerin Sublingual 0.4 mg Sublingual once Route: Sublingual; me1 14:41 Follow up: Response: No adverse reaction me1 14:06 Drug: morphine IVP or IV 4 mg IVP once over 4 mins Route: IVP; Infused Over: 4 mins; me1 Site: right hand; 14:41 Follow up: Response: No adverse reaction; Pain is decreased me1 14:06 Drug: Ondansetron IVP 4 mg IVP once; over 2 minutes Route: IVP; Site: right hand; me1 14:41 Follow up: Response: No adverse reaction; Nausea is decreased me1 15:25 Drug: fentaNYL (PF) IVP 50 mcg IVP once Route: IVP; Site: right hand; me1 16:26 Follow up: Response: No adverse reaction; Pain is decreased me1 17:00 Follow up: Response: No adverse reaction; Pain is decreased me1 16:53 Not Given (Patient Refused): mg PO once me1 19:49 Drug: Heparin (CT-Bolus No thrombolytic) - HEParin IVP 60 units/kg IVP once; Max 5000 jb4 units {Co-Signature: jj7 (Sam Tripp RN).} Route: IVP; Site: right hand; 19:49 Drug: Heparin (CT Drip) 12 units/kg/hr - ([place] [address] units, D5W IV 500 ml) IV at jb4 calculated rate Per protocol; Max initial rate 1000 units/hr {Co-Signature: jj7 (Sam Tripp RN).} Route: IV; Rate: calculated rate; Site: right hand; Disposition: 16:40 PA/CAUSTIC PREPARER's history reviewed, patient interviewed, and examined. HPI: 48-year-old female ms3 with past medical history of asthma, diabetes, panic attacks, rheumatoid arthritis presents to the emergency department via [facility] for chest pain that began 4 hours prior to arrival. My personal exam of patient reveals: Patient is alert, no apparent distress, nontoxic-appearing. Heart rate and rhythm are regular without murmurs rubs or gallops. Lungs are clear to station bilaterally. Abdomen is nontender to palpation, obese, bowel sounds present I agree with assessment and care plan and confirm the diagnosis (es) above. Disposition Summary: 08/07/23 15:16 Hospitalization Ordered Notes: Hospitalization Status: Inpatient Admission sb4 Provider: Nima Walker [facility] Condition: Fair sb4 Problem: new sb4 Symptoms: are unchanged sb4 Bed/Room Type: Standard sb4 Room Assignment: 221(08/07/23 19:29) cg Diagnosis - Subsequent non-ST elevation (NSTEMI) myocardial infarction sb4 - Chest pain, unspecified sb4 - Anemia, unspecified sb4 - Influenza due to other identified influenza virus with other respiratory sb4 manifestations Forms: - Medication Reconciliation Form sb4 - SBAR form sb4 - Leadership Thank You Letter sb4 Signatures: Dispatcher [employer] Claudia Sheehan RN RN iw Attema, Lee, FNP-C OYSTER SORTER-ClaCynthia Blanchard RN RN cg Tank Mata RN RN jb4 Gaurav Craig, DO ALVAREZ ms3 Kerry Moore PA-C PAMarilee sb4 Awa Osborn RN RN me1 Sam Tripp RN jj7 Corrections: (The following items were deleted from the chart) 14:51 13:57 Scoring Tools HEART Score: History: ECG: Age: Risk Factors: > or = 3 Risk factors sb4 for atherosclerotic disease (2), Troponin: Total Score = 5 sb4 19:29 15:16 sb4 cg
--- NOTE | 2023-08-07 15:16 | ER ---
Nurse's Notes [facility] Name: Fernanda Chong Age: 48 yrs Sex: Female : 1975 Arrival Date: 08/07/2023 Time: 13:31 Bed 5 Private MD: Diagnosis: Subsequent non-ST elevation (NSTEMI) myocardial infarction;Chest pain, unspecified;Anemia, unspecified;Influenza due to other identified influenza virus with other respiratory manifestations Presentation: 08/07 13:42 Chief complaint: Patient states: midsternal chest pain radiating to left shoulder iw today, hx of pancreatitis, GERD, diab, htn, EMS gave 1 SL Nitro , pain 07/07 , + nausea , no vomiting. Coronavirus screen: At this time, the client does not indicate any symptoms associated with coronavirus-19. Ebola Screen: Patient negative for fever greater than or equal to 101.5 degrees Fahrenheit, and additional compatible Ebola Virus Disease symptoms Patient denies exposure to infectious person. Patient denies travel to an Ebola-affected area in the 21 days before illness onset. No symptoms or risks identified at this time. 13:42 Method Of Arrival: EMS: [facility] iw 13:42 Acuity: YARON 3 iw 13:43 Initial Sepsis Screen: Does the patient meet any 2 criteria? No. Patient's initial iw sepsis screen is negative. Does the patient have a suspected source of infection? No. Patient's initial sepsis screen is negative. Risk Assessment: Do you want to hurt yourself or someone else? Patient reports no desire to harm self or others. Onset of symptoms was August 07, 2023. 13:44 Care prior to arrival: IV initiated. 20 GA, in the right hand, Glucose check: 252. iw Historical: - Allergies: 13:43 Aspirin; iw 13:43 PENICILLINS; iw - PMHx: 13:43 Asthma; Diabetes - IDDM; Panic Attacks; Rheumatoid Arthritis; iw - Immunization history:: Adult Immunizations unknown. - Social history:: Smoking status: Patient reports the use of cigarette tobacco products. Screenin:55 [facility] ED Fall Risk Assessment (Adult) History of falling in the last 3 months, me1 including since admission No falls in past 3 months (0 pts) Confusion or Disorientation No (0 pts) Intoxicated or Sedated No (0 pts) Impaired Gait No (0 pts) Mobility Assist Device Used No (0 pt) Altered Elimination No (0 pt) Score/Fall Risk Level 0 - 2 = Low Risk. Abuse screen: Denies threats or abuse. Nutritional screening: No deficits noted. Tuberculosis screening: No symptoms or risk factors identified. Assessment: 13:55 General: Appears uncomfortable, obese, Behavior is cooperative, appropriate for age, me1 quiet, Reports midsternal chest pain that radiates to the left. "9/10" tightness. Pain: Complains of pain in chest Pain radiates to left chest Pain currently is 9 out of 10 on a pain scale. Quality of pain is described as tight Pain began suddenly, 3 am Is continuous. Neuro: Level of Consciousness is awake, alert, obeys commands, Oriented to person, place, time, situation, Appropriate for age. Cardiovascular: Capillary refill < 3 seconds Patient's skin is warm and dry. Cardiovascular: Reports chest pain. Respiratory: Airway is patent Respiratory effort is even, unlabored, Respiratory pattern is regular, symmetrical. Vital Signs: 14:00 BP 132 / 87; Pulse 102; Resp 12; Temp 98.4(O); Pulse Ox 97% on R/A; Pain 10/10; me1 15:17 BP 146 / 94; Pulse 87; Resp 18; Pulse Ox 99% on R/A; me1 16:50 BP 141 / 100; tm6 17:04 BP 136 / 85; Pulse Ox 100% on R/A; tm6 19:15 Weight 110.4 kg; jb4 14:00 Pain Scale: Adult nh1 ED Course: 13:33 Patient arrived in ED. sb4 13:33 Kerry Moore PA-C is PHCP. sb4 13:33 Gaurav Craig DO is Attending Physician. sb4 13:41 Awa Osborn, SHELLY is Primary Nurse. me1 13:41 SARS RAPID Sent. me1 13:41 Flu Sent. me1 13:41 Lipase Sent. me1 13:42 Basic Metabolic Panel Sent. me1 13:42 CBC with Diff Sent. me1 13:42 LFT's Sent. me1 13:42 Magnesium Sent. me1 13:42 NT PRO-BNP Sent. me1 13:42 PT-INR Sent. me1 13:42 Troponin HS Sent. me1 13:43 Triage completed. iw 13:44 Arm band placed on. iw 13:55 No provider procedures requiring assistance completed. Maintain EMS IV. Dressing me1 intact. Good blood return noted. Site clean \\T\\ dry. Gauge \\T\\ site: 20 gauge Right hand. Patient maintains SpO2 saturation greater than 95% on room air. 13:55 Patient has correct armband on for positive identification. Bed in low position. Call me1 light in reach. Side rails up X2. Provided Education on: POC. Verbalized understanding. . Client placed on continuous cardiac and pulse oximetry monitoring. NIBP monitoring applied. monitoring tech on. 14:19 Notified Nurse Practitioner and/or Physician Program Proposals Coordinator of troponin 238.4. ll1 14:58 XRAY Chest (1 view) In Process Unspecified. EDMS 15:15 Nima Walker MD is Hospitalizing Provider. sb4 20:12 Patient admitted, IV remains in place. jb4 Administered Medications: 14:06 Drug: Nitroglycerin Sublingual 0.4 mg Sublingual once Route: Sublingual; me1 14:41 Follow up: Response: No adverse reaction me1 14:06 Drug: morphine IVP or IV 4 mg IVP once over 4 mins Route: IVP; Infused Over: 4 mins; me1 Site: right hand; 14:41 Follow up: Response: No adverse reaction; Pain is decreased me1 14:06 Drug: Ondansetron IVP 4 mg IVP once; over 2 minutes Route: IVP; Site: right hand; me1 14:41 Follow up: Response: No adverse reaction; Nausea is decreased me1 15:25 Drug: fentaNYL (PF) IVP 50 mcg IVP once Route: IVP; Site: right hand; me1 16:26 Follow up: Response: No adverse reaction; Pain is decreased me1 17:00 Follow up: Response: No adverse reaction; Pain is decreased me1 16:53 Not Given (Patient Refused): [id number] mg PO once me1 19:49 Drug: Heparin (RI-Bolus No thrombolytic) - HEParin IVP 60 units/kg IVP once; Max 5000 jb4 units {Co-Signature: jj7 (Sam Tripp RN).} Route: IVP; Site: right hand; 19:49 Drug: Heparin (RI Drip) 12 units/kg/hr - ([place] [address] units, D5W IV 500 ml) IV at jb4 calculated rate Per protocol; Max initial rate 1000 units/hr {Co-Signature: jj7 (Sam Tripp RN).} Route: IV; Rate: calculated rate; Site: right hand; Medication: 13:55 VIS not applicable for this client. me1 Outcome: 20:12 Admitted to Med/surg accompanied by tech, via wheelchair, room 221, with chart, jb4 20:12 Condition: stable 20:12 Discharge instructions given to patient, Instructed on the need for admit, Demonstrated understanding of instructions, 20:13 Patient left the ED. jb4 Signatures: Dispatcher [employer] EDClaudia Rojo, RN RN Tank Mata RN RN jb4 Shannon Monroe, RN RN ll1 Kerry Moore, PA-C PA-C sb4 Awa Osborn, RN RN me1 Rudi Henderson RN RN tm6 Sam Tripp RN jj7 Corrections: (The following items were deleted from the chart) 16:38 15:16 Decision to Hospitalize by Provider. sb4 ld1
[2023-08-07] MEDS ORDERED: FENTANYL CITR 100 MCG/2 ML ONE (15:34)
[2023-08-07] MEDS ORDERED: ACETAMINOPHEN 500 MG TAB PO PRN ×2 (16:06→19:52)
[2023-08-07] MEDS ORDERED: ALBUTEROL 2.5 MG/3 ML NEB SOL NEB PRN ×2 (16:06→19:52)
[2023-08-07] MEDS ORDERED: ONDANSETRON 4 MG/2 ML VIAL IV PRN (16:06)
[2023-08-07] MEDS ORDERED: NITROGLYCERIN 0.4 MG/TAB SL PRN (16:12)
[2023-08-07] MEDS ORDERED: INSULIN REGULAR (HUMAN) 100 UNIT/ML SQ SCH (16:30)
--- NOTE | 2023-08-07 16:36 | P.HP ---
Certification for Inpatient With expected LOS: <2 Midnights Patient will require the following post-hospital care: None Practitioner: I am a practitioner with admitting privileges, knowledge of patient current condition, hospital course, and medical plan of care. Services: Services provided to patient in accordance with Admission requirements found in Title 42 Section 412.3 of the Code of Federal Regulations <Antonella Shell - Last Filed: 08/07/23 17:05> Patient History Date of Service: 08/07/23 Primary Care Provider: Dr. Denise Montez Reason for admission: Chest pain shortness of breath, hypertension History of Present Illness: Ms. Castillo Walker 48-year-old black female with history of hypertension, asthma, diabetes type 2 insulin-dependent, panic attacks, rheumatoid arthritis presented to the ER via EMS with complaints of chest pain. Pain started 3 days ago. Pain increased this morning. Pain radiated to left arm associated with abdominal pain shortness of breath. Patient described the pain as pressure, squeezing and it was alleviated by nitroglycerin sublingual x1. Patient's spouse at bedside, reports chest pain located substernal area. Patient denies fever, chills, nausea, vomiting. Patient patient is a current everyday smoker smokes 4 cigarettes/day for many years.ED course; vital signs blood pressure 132/87, pulse 102, respiration 12, temperature 98.4, pulse ox 97% on room air, pain 10/10 at this time. EKG regular sinus tachycardia, OR interval is normal at 142 6 Emecheck, QRS interval is normal at YARELI sec, QT interval is normal at 402M sac. With nonspecific STT changes. Laboratory findings significant for WBC 13.5, hemoglobin 8.7, hematocrit 29, platelet 03/18/2018 and 1.04, GFR 66, glucose 262, calcium 8.3, AST 129, ALT 147, troponin I 283.4. Admitting the patient with a diagnosis of non-ST elevation myocardial infarction, chest pain, anemia, influenza due to other influenza virus with other respiratory manifestations. Home medications list reviewed: Yes - Past Medical/Surgical History Diabetic: Yes -: Hypertension -: Hyperlipidemia -: Diabetes type 2 insulin-dependent -: Asthma -: Anxiety -: Return arthritis -: Smoker Psychosocial/ Personal History: Lives with the spouse - Social History Smoking Status: Current every day smoker Counseled patient to stop smoking for: less than 10 minutes Smoking therapy provided: Yes Patient receptive to therapy: Yes Alcohol use: Yes CD- Drugs: No Caffeine use: Yes Place of Residence: Home <Antonella Shell - Last Filed: 08/07/23 17:05> Date of Service: 08/07/23 <WalkerNima - Last Filed: 08/07/23 20:46> Allergies aspirin Allergy (Unverified 09/02/17 20:52) Unknown Penicillins Allergy (Unverified 09/02/17 20:52) Unknown Review of Systems 10-point ROS is otherwise unremarkable General: Unremarkable Eyes: Unremarkable ENT: Unremarkable Respiratory: Shortness of Breath, SOB with Excertion, Other (History of asthma on breathing treatments at home for more than 5 years) Cardiovascular: Chest Pain (Substernal chest pain radiating to the arms and back) Gastrointestinal: No Distention Genitourinary: Unremarkable Musculoskeletal: Unremarkable Integumentary: Unremarkable Neurological: Unremarkable <Antonella Shell - Last Filed: 08/07/23 17:05> Physical Examination - Physical Exam General: Alert, Oriented x3, Cooperative HEENT: Atraumatic, Normocephalic, PERRLA Neck: Supple, 2+ carotid pulse no bruit, JVD not distended Respiratory: Clear to auscultation bilaterally, Diminished (Bases) Cardiovascular: No edema, Regular rate/rhythm, Normal S1 S2, No murmurs Capillary refill: <2 Seconds Gastrointestinal: Normal bowel sounds, No ascites, No tenderness, No masses, No rebound, No guarding Musculoskeletal: No clubbing, No swelling, No contractures, No erythema, No tenderness, No warmth Integumentary: No rashes, No breakdown, No significant lesion, No tenderness/swelling, No erythema, No warmth Neurological: Normal gait, Normal speech, Normal strength at 5/5 x4 extr, Normal tone, Sensation intact, Normal reflexes 2+, Normal affect - Studies Laboratory Data (last 24 hrs) 08/07/23 08/07/23 08/07/23 13:38 13:38 13:38 WBC 13.50 H Hgb 8.7 L Hct 29.0 L Plt Count 522 H PT 11.6 INR 1.05 Sodium 137 Potassium 3.5 BUN 12 Creatinine 1.04 H Glucose 262 H Magnesium 1.8 Total Bilirubin 0.3 AST 129 H ALT 147 H Alkaline Phosphatase 196 H Lipase 29 Microbiology Data (last 24 hrs): 08/07/23 13:39 Nasopharnyx Influenza Type A Antigen Screen - Final 08/07/23 13:39 Nasopharnyx Influenza Type B Antigen Screen - Final <Antonella Shell - Last Filed: 08/07/23 17:05> - Studies Laboratory Data (last 24 hrs) 08/07/23 08/07/23 08/07/23 13:38 13:38 13:38 WBC 13.50 H Hgb 8.7 L Hct 29.0 L Plt Count 522 H PT 11.6 INR 1.05 Sodium 137 Potassium 3.5 BUN 12 Creatinine 1.04 H Glucose 262 H Magnesium 1.8 Total Bilirubin 0.3 AST 129 H ALT 147 H Alkaline Phosphatase 196 H Lipase 29 Microbiology Data (last 24 hrs): 08/07/23 13:39 Nasopharnyx Influenza Type A Antigen Screen - Final 08/07/23 13:39 Nasopharnyx Influenza Type B Antigen Screen - Final <Nima Walker - Last Filed: 08/07/23 20:46> Assessment and Plan - Problems (Diagnosis) (1) Non-ST elevation myocardial infarction (NSTEMI) Onset Date: ~08/04/23 Current Visit: Yes Status: Acute Plan: * Acute, pain started 3 days ago. Pain increased this morning. Pain radiated to left arm associated with abdominal pain shortness of breath. Patient described the pain as pressure, squeezing and it was alleviated by nitroglycerin sublingual x1. In normal sinus rhythm . * EKG regular sinus tachycardia * Laboratory findings significant for troponin I 283.4. * Consulted information services vice president Dr. Gallo * Admitting the patient to the hospital * Started order for non-ST elevation TN including nitroglycerin, morphine for pain relief, statin 40 p.o. at bedtime, metoprolol 25 mg p.o. twice daily, and Lovenox * Discussed plan of care with the hospitalist Dr. Denise Castillo * Trend cardiac enzymes, electrolyte replacement as per hospital protocol * Continue to monitor the patient closely (2) Hypertension Current Visit: Yes Status: Chronic Plan: Chronic, uncontrolled. BP 133/99mmhg Started on metoprolol 25 mg p.o. twice daily GFR 66, will continue to monitor the blood pressure closely Qualifiers: Hypertension type: secondary to endocrine disorders Qualified Code(s): I15.2 - Hypertension secondary to endocrine disorders (3) Type 2 diabetes mellitus with hyperglycemia Current Visit: Yes Status: Chronic Plan: Chronic, uncontrolled on Novolin 70/30 ,75 units sq in the a.m. and 65 unit sq in the p.m. Insulin-dependent diabetes for many years Reports hypoglycemic episodes, Will continue to monitor the blood sugar regular insulin sliding scale Hypoglycemic precaution A1c in the morning GFR 66 (4) Asthma Current Visit: Yes Status: Chronic Plan: Chronic, uncontrolled on Symbicort for maintenance and albuterol for rescue Patient reports that she is asthmatic since teenage Denies any recent asthma exacerbation. Chest x-ray ordered , CT chest PE protocol ordered as patient is complaining of chest pain and shortness of breath to rule out pulmonary embolism Resume home medications Qualifiers: Asthma severity: moderate Asthma complication type: with acute exacerbation (5) Shortness of breath Current Visit: Yes Status: Acute Plan: Chronic worsening. Resume home medication Start oxygen 2 L through nasal canula to keep the patient SPO2 above 92 and help with the work of breathing Chest x-ray ordered, chest CT PE protocol ordered (6) Smoker Current Visit: Yes Status: Acute (7) Fatty liver Current Visit: Yes Status: Acute Plan: Chronic, elevated liver enzymes AST 129 ALT 147. Patient reports that patient has liver fatty liver disease, unsure if the levels increased Discussed to moderate use of alcohol, check with the medical practitioner before starting any [id number] medications We will continue to monitor her enzymes (8) Anxiety Current Visit: Yes Status: Acute Plan: Chronic, uncontrolled not on any medications for this problem Patient is having chest pain will give morphine And watch if the symptoms get better Continue to monitor Discharge Plan: Home Plan to discharge in: 72 Hours - Advance Directives Does patient have a Living Will: No Does patient have a Durable POA for Healthcare: No - Code Status/Comfort Care Code Status Assessed: Yes Code Status: Full Code (Full code) Physician Review: Patient Assessed, Agree with Above Assessment and Plan Critical Care: No Time Spent Managing Pts Care (In Minutes): 55 (Minutes) <Antonella Shell - Last Filed: 08/07/23 17:05> Physician Review Additional Text: Plan of care reviewed with VALUE STREAM LEADER Shell at time of admission. 48yo F, 3 days chest pain, shortness of breath. NSTEMI, elevated LFTs. h/o fatty liver. chronic anemia, no bleed trend trops, NSTEMI protocol VALUE STREAM LEADER to discuss with Cardiology, given symptoms and trop, may need cath, if preference for lovenox vs heparin drip check CTA to r/o PE, eval for effusion/pneumonia <Nima Walker - Last Filed: 08/07/23 20:46>
--- NOTE | 2023-08-07 17:07 | RAD REPORT ---
EXAM DESCRIPTION: CT - Chest For Pe Angio - 08/07/2023 4:58 pm CLINICAL HISTORY: Chest pain. Chest pain, SOB COMPARISON: No comparisons TECHNIQUE: CT angiogram of the pulmonary arteries was performed with MIP. All CT scans are performed using dose optimization technique as appropriate and may include automated exposure control or mA/KV adjustment according to patient size. FINDINGS: No evidence of pulmonary thromboembolism. No acute aortic finding demonstrated. Mild interstitial pulmonary edema. Trace right pleural effusion. Several nodules are present in the thyroid, largest on the left measuring 29 mm. Mild soft tissue prominence in the mediastinum and hilum suggests mild hilar and mediastinal lymphade nopathy. IMPRESSION: No evidence of pulmonary thromboembolism. Mild interstitial pulmonary edema with trace right pleural effusion. Nodular thyroid gland.
[2023-08-07] MEDS: METOPROLOL TAR 25 MG TAB PO SCH (18:00)
[2023-08-07] MEDS ORDERED: HEPARIN/D5W 25,000 UNIT/500 ML BAG IV SCH ×2 (19:00→19:52)
[2023-08-07] MEDS ORDERED: HEPARIN/D5W 25,000 UNIT/500 ML BAG IV ONE (19:44)
[2023-08-07] MEDS ORDERED: HEPARIN 5000 UNIT/ML 1 ML VIAL ONE (19:44)
[2023-08-07] MEDS: INSULIN REGULAR (HUMAN) 100 UNIT/ML SQ SCH ×3 (19:52→21:15)
[2023-08-07] MEDS: BUDESONIDE 0.5 MG/2 ML NEB NEB SCH ×2 (20:00→22:15)
--- NOTE | 2023-08-07 20:51 | CON ---
Date of Consultation: 08/07/2023 Reason For Consultation: Chest pain and elevated troponin. History Of Present Illness: 48-year-old female, history of hypertension, asthma, diabetes for 10 yea rs, presented with chest pain, left-sided, pressure-like, radiates to the shoulder and left upper ext remity, lasts about 30 to 40 minutes and goes away. At the present time, she is chest-pain free, but it is on and off pain. She is a smoker, smokes about 4 cigarettes per day and denies having active chest pain at the present time. Past Medical History: As outlined above in the HPI. Medications: Refer reconciliation sheet for detailed list. Allergies: ASPIRIN AND PENICILLIN. Family History: No premature coronary artery disease or cancer. Social History: She does not drink. She smokes as outlined above. Review of Systems: All systems were reviewed and they were negative except mentioned in HPI. Physical Examination: Vital Signs: Reviewed. Head and Neck: Pupils are equal, reactive to light. Intact eye movements. No JVD. No cervical lym phadenopathy. Neck is supple. Thyroid is not enlarged. Lungs: Clear to auscultation bilaterally. No rhonchi, wheezing, or crackles. No accessory muscle u se. Heart: Regular rate and rhythm. No extra sounds. Abdomen: Soft, nontender. Bowel sounds positive. No organomegaly. No masses or hernia. No rigidi ty or rebound. Extremities: No clubbing, cyanosis. Intact pulses. Skin: No rash. No nodule. Neurologic: Alert, awake, oriented x3. No acute focal deficits appreciated. Investigations: First troponin is 283. BUN is 12, creatinine 1.04 and her hemoglobin is 8.7. Assessment And Recommendations: 1.Eoj-RX-fjxfaknbc myocardial infarction. She is chest pain-free now, recommend to use nitro patch 1 inch to upper chest q.8 hours and also start on IV heparin drip. Keep NPO past midnight for finch ry angiogram tomorrow. 2.Acute congestive heart failure. Obtain an echo. Recommend Lasix 40 mg IV b.i.d. 3.Dyslipidemia. Continue statin. Please make sure the patient is on IV heparin. We will plan for coronary angiogram first thing in the morning. SR/MODL Voice ID: [id number] Report ID: [id number]
[2023-08-07] MEDS: MORPHINE 2 MG/ML SYR IV PRN (21:14)
[2023-08-07] MEDS: ATORVASTATIN 40 MG TAB PO SCH (21:14)
[2023-08-07] MEDS: GABAPENTIN 100 MG CAP PO SCH (21:14)
[2023-08-07 21:43] LABS: Thyroid Stimulating Hormone 1.23 uIU/mL (0.358-3.740)
[2023-08-07 21:45] LABS: Troponin High Sensitivity 3128.2 pg/mL (<58.9)
[2023-08-08] MEDS: ONDANSETRON 4 MG/2 ML VIAL IV PRN ×3 (02:36→22:25)
[2023-08-08] MEDS: MORPHINE 2 MG/ML SYR IV PRN ×3 (02:36→22:16)
[2023-08-08 03:53] LABS: Absolute Lymphocytes (CBC) 4.3 K/uL (0.7-4.9); Hematocrit 29.4 % (36.0-45.0); Lymphocytes % 29.9 % (15.3-44.8); MPV 6.5 fL (7.6-11.3); Platelets 543 thou/uL (152-406); RBC Red Blood Cell Count 4.27 M/uL (3.86-4.86)
[2023-08-08 04:10] LABS: Ferritin 7.8 ng/mL (8-388); Magnesium 1.8 mg/dL (1.6-2.4); Phosphorus 2.5 mg/dL (2.5-4.9); Potassium 3.6 mEq/L (3.5-5.1)
[2023-08-08] MEDS: METOPROLOL TAR 25 MG TAB PO SCH ×2 (04:49→17:46)
[2023-08-08] MEDS: ASPIRIN EC 81 MG TAB PO SCH (06:02)
[2023-08-08] MEDS: INSULIN REGULAR (HUMAN) 100 UNIT/ML SQ SCH ×4 (07:30→22:15)
--- NOTE | 2023-08-08 07:44 | RAD REPORT ---
EXAM DESCRIPTION: RAD - Chest Pa And Lat (2 Views) - 08/08/2023 4:51 am CLINICAL HISTORY: Shortness of breath, history of asthma COMPARISON: Chest Single View dated 08/07/2023; Chest Single View dated 08/20/2016; Chest For Pe Ang io dated 08/07/2023 TECHNIQUE: PA and lateral views of the chest were obtained. FINDINGS: Bibasilar patchy and streaky opacities, stable, could reflect mild congestion or atelectat ic changes. No new focal consolidation. Heart size is normal and central vasculature is within normal limits. No pleural effusion or pneumothorax seen. No acute bony finding noted. IMPRESSION: No acute cardiopulmonary process. Stable findings as above.
[2023-08-08] MEDS: BUDESONIDE 0.5 MG/2 ML NEB NEB SCH (08:00)
[2023-08-08] MEDS ORDERED: MAGNESIUM SULFATE 1 gm IVPB 1 GM/100 ML BAG IV ONE (09:00)
[2023-08-08] MEDS ORDERED: ENOXAPARIN 40 MG/0.4 ML SQ SCH (09:00)
[2023-08-08] MEDS ORDERED: HEPA 1000U/500MLS 2,000 UNIT/1,000 ML BAG IV ONE (10:18)
[2023-08-08] MEDS ORDERED: LIDOCAINE 1% 20 ML MDV ONE (10:18)
[2023-08-08] MEDS ORDERED: MIDAZOLAM HCL 2 MG/2 ML INJ ONE (10:19)
[2023-08-08] MEDS ORDERED: HEPARIN 5000 UNIT/ML 1 ML VIAL ONE (10:19)
[2023-08-08] MEDS ORDERED: VERAPAMIL HCL 10 MG/4 ML VIAL IV ONE (10:19)
[2023-08-08] MEDS ORDERED: FENTANYL CITR 100 MCG/2 ML ONE (10:19)
[2023-08-08] MEDS ORDERED: HEPARIN 10,000 UNIT/10 ML VIAL IV ONE (10:20)
[2023-08-08] MEDS ORDERED: ATROPINE SULF 1 MG/10 ML SYR IV ONE (10:20)
[2023-08-08] MEDS ORDERED: NA CHLORIDE 0.9% 500 ML ONE (10:35)
[2023-08-08] MEDS ORDERED: POTASSIUM CL SA 10 MEQ TAB PO ONE (12:00)
[2023-08-08] MEDS ORDERED: TICAGRELOR 90 MG TABLET PO ONE (12:05)
--- NOTE | 2023-08-08 12:13 | P.PN ---
Subjective Date of Service: 08/08/23 Primary Care Provider: Dr. Denise Montez Chief Complaint: Non-STEMI Patient is improving admitted with a 3-day history of chest pain scheduled for a cardiac catheterization today troponin significantly elevated nonspecific ST-T changes Review of Systems Unremarkable Physical Examination - Vital Signs Temperature: 98.3 F Blood Pressure: 107/64 Pulse: 81 Respirations: 20 Pulse Ox (%): 96 - Physical Exam General: Alert, Oriented x3 Neck: Supple Respiratory: Clear to auscultation bilaterally Cardiovascular: No edema, Normal pulses - Studies Laboratory Data (last 24 hrs) 08/07/23 08/07/23 08/07/23 13:38 13:38 13:38 WBC 13.50 H Hgb 8.7 L Hct 29.0 L Plt Count 522 H PT 11.6 INR 1.05 Sodium 137 Potassium 3.5 BUN 12 Creatinine 1.04 H Glucose 262 H Magnesium 1.8 Total Bilirubin 0.3 AST 129 H ALT 147 H Alkaline Phosphatase 196 H Lipase 29 Microbiology Data (last 24 hrs): 08/07/23 13:39 Nasopharnyx Influenza Type A Antigen Screen - Final 08/07/23 13:39 Nasopharnyx Influenza Type B Antigen Screen - Final Assessment And Plan - Current Problems (Diagnosis) (1) Non-ST elevation myocardial infarction (NSTEMI) Onset Date: ~08/04/23 Current Visit: No Status: Acute Plan: Patient is 48 years of age with history of diabetes hypertension admitted with a non-STEMI troponins were in the thousands scheduled for a cardiac cath today is currently pain-free vital signs oxygenation satisfactory continue with anticoagulation for now no acute changes on chest x-ray or CT Physician Review: Patient Assessed, Agree with Above Assessment and Plan
--- NOTE | 2023-08-08 12:29 | EKG ---
Test Date: 2023-08-07 Test Time: 13:35:52 Books Salesperson: BLAINE MEASUREMENT RESULTS: Intervals: Rate: 90 AZ: 142 QRSD: 80 QT: 402 QTc: 491 [place]: P: 69 [place]: 142 QRS: 56 T: 128 INTERPRETIVE STATEMENTS: Normal sinus rhythm Anterior infarct, age undetermined T wave abnormality, consider lateral ischemia Abnormal ECG Compared to ECG 08/20/2016 11:17:44 Myocardial infarct finding now present T-wave abnormality now present Possible ischemia now present Electronically Signed On 08-08-23 12:27:57 CDT by Isai Mims
--- NOTE | 2023-08-08 12:55 | ECHO ---
HEIGHT: 5 ft 9 in WEIGHT: 243 lb 0 oz DATE OF STUDY: 08/08/[address]: Antonella Shell NP 2-DIMENSIONAL: YES M.MODE: YES DOPPLER: YES COLOR FLOW: YES TDS: YES PORTABLE: YES DEFINITY: BUBBLE STUDY: DIAGNOSIS: CHEST PAIN/ SHORTNESS OF BREATH/ HYPERTENSION CARDIAC HISTORY: CATHERIZATION: SURGERY: PROSTHETIC VALVE: PACEMAKER: MEASUREMENTS (cm) DIASTOLIC (NORMALS) SYSTOLIC (NORMALS) IVSd 1.0 (0.6-1.2) LA Diam 3.2 (1.9-4.0) LVEF 45% LVIDd 5.6 (3.5-5.7) LVIDs 4.3 (2.0-3.5) %FS 22% LVPWd 1.3 (0.6-1.2) Ao Diam 2.7 (2.0-3.7) 2 DIMENSIONAL ASSESSMENT: RIGHT ATRIUM: NORMAL LEFT ATRIUM: NORMAL RIGHT VENTRICLE: NORMAL LEFT VENTRICLE: MILDLY DEPRESSED EJECTION FRACTION TRICUSPID VALVE: NORMAL MITRAL VALVE: MILD MITRAL REGURGITATION PULMONIC VALVE: MILD PULMONIC INSUFFICIENCY AORTIC VALVE: NORMAL PERICARDIAL EFFUSION: NONE AORTIC ROOT: NORMAL LEFT VENTRICULAR WALL MOTION: MILD ANTERIOR/ APICAL HYPOKINESIS DOPPLER/COLOR FLOW: SEE BELOW COMMENTS: 1. MILDLY DEPRESSED LEFT VENTRICULAR EJECTION FRACTION 40-45% 2. MILD ANTERIOR/ APICAL HYPOKINESIS 3. MILD MITRAL REGURGITATION 4. MILD PULMONIC INSUFFICIENCY TECHNOLOGIST: SEEMA GUPTA
[2023-08-08] MEDS ORDERED: NA CHLORIDE 0.9% 1,000 ML IV SCH (15:00)
--- NOTE | 2023-08-08 17:28 | PN ---
Date of Progress Note: 08/08/2023 Subjective: Seen by bedside. No further chest pain. Troponin peaked at 3000. Review of Systems: No further chest pain. No nausea, vomiting, diarrhea. No abdominal pain. No dysuria, polyuria, or urgency. All other systems reviewed are negative. Physical Examination: Vital Signs: Reviewed. Head and Neck: Pupils are equal, reactive to light. Intact eye movements. No JVD. No cervical lym phadenopathy. Neck is supple. Thyroid is not enlarged. Lungs: Clear to auscultation bilaterally. No rhonchi, wheezing, or crackles. No accessory muscle u se. Heart: Regular rate and rhythm. No extra sounds. Abdomen: Soft, nontender. Bowel sounds positive. No organomegaly. No masses or hernia. No rigidi ty or rebound. Extremities: No clubbing, cyanosis. Intact pulses. Skin: No rash. Neurologic: Alert, awake, and oriented x3. No acute focal deficits appreciated. Investigation: Labs reviewed. Assessment/recommendations: 1.Non-ST elevation myocardial infarction. On echo, she has anterior and apical wall mild hypokinesi s. Likely, it is a left anterior descending stenosis. Plan for coronary angiogram today. Continue aspirin and heparin drip. 2.Dyslipidemia. Continue statin. 3.Hypertension. Blood pressure is controlled. SR/MODL Voice ID: [id number] Report ID: [id number]
[2023-08-08] MEDS ORDERED: PRASUGREL (EFFIENT) 10 MG TAB PO SCH (18:00)
[2023-08-08] MEDS: ATORVASTATIN 40 MG TAB PO SCH (22:15)
[2023-08-08] MEDS: GABAPENTIN 100 MG CAP PO SCH (22:15)
[2023-08-09] MEDS: MORPHINE 2 MG/ML SYR IV PRN ×4 (04:03→20:35)
[2023-08-09 04:12] LABS: Potassium 3.7 mEq/L (3.5-5.1)
[2023-08-09] MEDS: PANTOPRAZOLE 40MG TABLET PO SCH (06:28)
[2023-08-09] MEDS: METOPROLOL TAR 25 MG TAB PO SCH ×2 (06:28→17:12)
[2023-08-09] MEDS: BUDESONIDE 0.5 MG/2 ML NEB NEB SCH (08:01)
[2023-08-09] MEDS: GABAPENTIN 100 MG CAP PO SCH ×4 (08:50→20:34)
[2023-08-09] MEDS: INSULIN REGULAR (HUMAN) 100 UNIT/ML SQ SCH ×4 (08:51→20:34)
[2023-08-09] MEDS: ASPIRIN EC 81 MG TAB PO SCH (08:51)
[2023-08-09] MEDS ORDERED: lisinopriL 10 MG TAB PO SCH (09:00)
[2023-08-09] MEDS ORDERED: lisinopriL 5 MG TAB PO SCH (09:00)
[2023-08-09] MEDS ORDERED: PRASUGREL (EFFIENT) 10 MG TAB PO SCH (09:00)
--- NOTE | 2023-08-09 12:12 | P.PN ---
Subjective Date of Service: 08/09/23 Primary Care Provider: Dr. Denise Montez Chief Complaint: Non-STEMI Patient is 48 years of age s/p stent placement for a significant coronary artery disease currently doing well minimal chest discomfort denies any shortness of breath Review of Systems Unremarkable Physical Examination - Vital Signs Temperature: 97.1 F Blood Pressure: 126/57 Pulse: 78 Respirations: 18 Pulse Ox (%): 97 - Physical Exam General: Alert, Oriented x3 Respiratory: Clear to auscultation bilaterally Cardiovascular: No edema, Regular rate/rhythm, Normal S1 S2 Assessment And Plan - Current Problems (Diagnosis) (1) Non-ST elevation myocardial infarction (NSTEMI) Onset Date: ~08/04/23 Current Visit: No Status: Acute Plan: Patient is 48 years of age admitted with's non-STEMI she has significant stenosis of the LAD as per Dr. Mims patient was started on dual antiplatelet therapy YAQUELIN inhibitor's and beta-blockers doing well hemodynamically stable echocardiogram did show some wall motion abnormalities MILDLY DEPRESSED LEFT VENTRICULAR EJECTION FRACTION 40-45% 2. MILD ANTERIOR/ APICAL HYPOKINESIS 3. MILD MITRAL REGURGITATION 4. MILD PULMONIC INSUFFICIENC Discussed with Dr. Fritz plan for discharge tomorrow resume YAQUELIN inhibitors Discharge Plan: Home Plan to discharge in: 24 Hours Physician Review: Patient Assessed, Agree with Above Assessment and Plan
[2023-08-09] MEDS: ONDANSETRON 4 MG/2 ML VIAL IV PRN (13:29)
[2023-08-09] MEDS ORDERED: INSULN ASP SQ SCH (17:00)
[2023-08-09] MEDS ORDERED: INSULIN ASPART PROT SQ SCH (17:00)
[2023-08-09 17:53] VITALS: BMI 35.6
--- NOTE | 2023-08-09 18:34 | PN ---
Date of Progress Note: 08/09/2023 Subjective: Seen by bedside. She is status post PCI of critical proximal to mid LAD stenosis. Doin g well. No chest pain. Review of Systems: No chest pain, shortness of breath, orthopnea, cough. No nausea, vomiting, diarrhea. All other syst ems reviewed and they were negative. Physical Examination: Vital Signs: Reviewed. Head and Neck: Pupils are equal, reactive to light. Intact eye movements. No JVD. No cervical lym phadenopathy. Neck is supple. Thyroid is not enlarged. Lungs: Clear to auscultation bilaterally. No rhonchi, wheezing, or crackles. No accessory muscle u se. Heart: Regular rate and rhythm. No extra sounds. Abdomen: Soft, nontender. Bowel sounds positive. No organomegaly. No masses or hernia. No rigidi ty or rebound. Extremities: No clubbing or cyanosis. Intact pulses. Skin: No rash. Neurologic: Alert, awake, oriented x3. No acute focal deficits appreciated. Investigations: BUN 10, creatinine 1.05, and hemoglobin is 8.8. Assessment/recommendation: 1.Non-ST elevation myocardial infarction. Culprit is proximal to mid LAD was critical, status post successful PCI. Continue Prasugrel and aspirin, to be discharged on both. 2.Dyslipidemia. Continue statin. 3.Acute systolic heart failure, mild, status post successful PCI. It was ischemic. Recommend to co ntinue YAQUELIN inhibitor and beta-diane and titrate as needed. 4.Dyslipidemia. Continue Lipitor 40 mg at bedtime. If the patient continues to be stable, okay, she can be released within next 24 hours to follow up as an outpatient. SR/MODL Voice ID: [id number] Report ID: [id number]
[2023-08-09] MEDS: ATORVASTATIN 40 MG TAB PO SCH (20:34)
[2023-08-10] MEDS: MORPHINE 2 MG/ML SYR IV PRN (02:26)
[2023-08-10 03:40] VITALS: O2SAT 94
[2023-08-10] MEDS: PANTOPRAZOLE 40MG TABLET PO SCH (05:42)
[2023-08-10] MEDS: METOPROLOL TAR 25 MG TAB PO SCH (05:42)
[2023-08-10 05:43] VITALS: BP 131/67
[2023-08-10 05:45] VITALS: TEMP 98
[2023-08-10] MEDS ORDERED: INSULIN ASPART PROT SQ SCH (06:00)
[2023-08-10] MEDS ORDERED: INSULN ASP SQ SCH (06:00)
--- NOTE | 2023-08-11 10:53 | P.DS ---
Admission Date: 08/07/23 Discharge Date: 08/10/23 Primary Care Provider: Dr. Denise Montez Disposition: ROUTINE DISCHARGE Discharge Condition: GOOD Reason for Admission: Non-STEMI - Problems (1) Non-ST elevation myocardial infarction (NSTEMI) Onset Date: ~08/04/23 Status: Acute Brief History of Present Illness: Patient is 48 years of age admitted with non-STEMI Hospital Course: Seen by cardiology Progress note from cardiology as below Non-ST elevation myocardial infarction. Culprit is proximal to mid LAD was critical, status post successful PCI. Continue Prasugrel and aspirin, to be discharged on both. 2. Dyslipidemia. Continue statin. 3. Acute systolic heart failure, mild, status post successful PCI. It was ischemic. Recommend to continue YAQUELIN inhibitor and beta-diane and titrate as needed. 4. Dyslipidemia. Continue Lipitor 40 mg at bedtime. If the patient continues to be stable, okay, she can be released within next 24 hours to follow up as an outpatient. The time of discharge patient was doing well denied any chest pain occasions as above a call to the pharmacy patient to follow-up with Dr. Mims vital signs were all stable chest clear Vital Signs/Physical Exam: Temp Pulse Resp BP Pulse Ox 98.0 F 84 18 131/67 95 08/10/23 04:00 08/10/23 05:42 08/10/23 04:00 08/10/23 05:42 08/10/23 04:00 Laboratory Data at Discharge: WBC 14.30 thou/uL (4.3-10.9) H 08/08/23 03:37 Hgb 8.8 g/dL (12.0-15.0) L 08/08/23 03:37 Hct 29.4 % (36.0-45.0) L 08/08/23 03:37 Plt Count 543 thou/uL (152-406) H 08/08/23 03:37 PT 11.6 SECONDS (9.5-12.5) 08/07/23 13:38 INR 1.05 08/07/23 13:38 APTT 26.8 SECONDS (24.3-36.9) 08/08/23 19:04 Sodium 138 mEq/L (136-145) 08/09/23 03:40 Potassium 3.7 mEq/L (3.5-5.1) 08/09/23 03:40 BUN 10 mg/dL (7-18) 08/09/23 03:40 Creatinine 1.05 mg/dL (0.55-1.02) H 08/09/23 03:40 Glucose 237 mg/dL (74-106) H 08/09/23 03:40 Phosphorus 2.5 mg/dL (2.5-4.9) 08/08/23 03:37 Magnesium 1.8 mg/dL (1.6-2.4) 08/08/23 03:37 Total Bilirubin 0.3 mg/dL (0.2-1.0) 08/07/23 13:38 AST 129 U/L (15-37) H 08/07/23 13:38 ALT 147 U/L (13-56) H 08/07/23 13:38 Alkaline Phosphatase 196 U/L (45-117) H 08/07/23 13:38 Triglycerides 248 mg/dL (<150) H 08/08/23 03:37 Cholesterol 165 mg/dL (<200) 08/08/23 03:37 HDL Cholesterol 35 mg/dL (40-60) L 08/08/23 03:37 Cholesterol/HDL Ratio 4.71 08/08/23 03:37 Lipase 29 U/L (13-75) 08/07/23 13:38 Home Medications: Esomeprazole Mag Trihydrate [Nexium] 40 mg PO DAILY 08/07/23 Gabapentin [Neurontin*] 1 tab PO TID 08/07/23 Insulin Aspart Prot/Insuln Asp [Novolog Mix 70-30 Flexpen] 65 units SQ DAILY AT SUPPER 08/07/23 Insulin Aspart Prot/Insuln Asp [Novolog Mix 70-30 Flexpen] 75 units SQ [id number] 08/07/23 lisinopriL [Lisinopril] 1 tab PO DAILY 08/07/23 Atorvastatin Calcium [Lipitor] 40 mg PO BEDTIME 30 Days #30 tab 08/09/23 Metoprolol Tartrate [Lopressor] 50 mg PO DAILY 30 Days #30 tab 08/09/23 Prasugrel Hydrochloride [Effient*] 10 mg PO DAILY 30 Days #30 tab 08/09/23 New Medications: Prasugrel Hydrochloride [Effient*] 10 mg PO DAILY 30 Days #30 tab Atorvastatin Calcium [Lipitor] 40 mg PO BEDTIME 30 Days #30 tab Metoprolol Tartrate [Lopressor] 50 mg PO DAILY 30 Days #30 tab Physician Discharge Instructions: pt to take 81 mg of asprin daily Diet: Regular Followup: Vivek Arriaza MD [Primary Care Provider] - 1 Week Isai Mims MD [ACTIVE - CAN ADMIT] - 1-2 Weeks
== END 2023-08-10 09:41 | disposition home or self-care (01) | DRG 246 ==
LOC: ER 13:31 → ERHOLD 15:46 → 2ND 19:42 → UNDODISIN 08-08 16:00
PROVIDERS: ADMIT Hospitalist; ATTEND Internal Medicine Sleep Medicine
PROC: 027034Z Dilation of Coronary Artery, One Artery with Drug-eluting Intraluminal Device, Percutaneous Approach (ICD-10-PCS; principal; 2023-08-08)
PROC: 4A023N7 Measurement of Cardiac Sampling and Pressure, Left Heart, Percutaneous Approach (ICD-10-PCS; 2023-08-08)
PROC: B2111ZZ Fluoroscopy of Multiple Coronary Arteries using Low Osmolar Contrast (ICD-10-PCS; 2023-08-08)
DX: I21.4 Non-ST elevation (NSTEMI) myocardial infarction (principal); I50.21 Acute systolic (congestive) heart failure; J45.41 Moderate persistent asthma with (acute) exacerbation; I11.0 Hypertensive heart disease with heart failure; D64.9 Anemia, unspecified; E11.65 Type 2 diabetes mellitus with hyperglycemia; E11.649 Type 2 diabetes mellitus with hypoglycemia without coma; E66.9 Obesity, unspecified; I15.2 Hypertension secondary to endocrine disorders; F41.9 Anxiety disorder, unspecified; K76.0 Fatty (change of) liver, not elsewhere classified; E78.5 Hyperlipidemia, unspecified; M06.9 Rheumatoid arthritis, unspecified; J10.1 Influenza due to other identified influenza virus with other respiratory manifestations; F17.210 Nicotine dependence, cigarettes, uncomplicated; Z79.4 Long term (current) use of insulin; Z88.0 Allergy status to penicillin; Z88.6 Allergy status to analgesic agent; Z68.35 Body mass index [BMI] 35.0-35.9, adult; Z79.899 Other long term (current) drug therapy; Z20.822 Contact with and (suspected) exposure to COVID-19
CPT/HCPCS: 36415; 71045; 71046; 71275; 76937; 80048; 80061; 80076; 82728; 82947; 83036; 83540; 83690; 83735; 83880; 84100; 84443; 84466; 84484; 85025; 85610; 85730; 87804; 87811; 93005; 93306; 93458; 96374; 96375; 99285; C1725; C1893; C9600; J0461; J1644; J1815; J2001; J2250; J2270; J2405; J3010; J3475; J7040; J7613; J7626; Q9967